=== PATIENT | female | born 1935 | race Caucasian/White ===

== ENCOUNTER 2016-10-23 04:23 | Inpatient (IN) | payer MEDICARE, BC, OTHER ==
[~2016-10-23] VITALS: Ht 160 cm; Wt 57.7 kg
[~2016-10-23 04:23] MED LIST: /ADVA50050 INH; /ATOR40TA PO; /MOXI40TA OR; /MOXI40TA PO; ADVAIR; ALBU17IN INH; ALBU83IN INH; AMLO10TA PO; AMLO10TA2 PO; ASPI325T PO; ASPI32ECTA PO; ATOR1TAB19 PO; AZIT500T2 PO; CALCCHW12 PO; CALCTAB68 PO; CEFD1CAP8 PO; CLON0.5T PO; CLON1TAB PO; COLA50CA3 PO; DOCU100C PO; DUONSOL INH; DYAZ37.5 PO; DYAZCA PO; FERR325T3 PO; FERR325T69 PO; FLUN7IN; HALO25TA PO; HYDR-3713 PO; K-TA10TA PO; K-TA10TA2 PO; KLON0.5T PO; KLON2TAB PO; LEVO112T PO; LEVO125T41 PO; LEVO500T32 PO; LEVO88TA2 PO; LISI10TA4 PO; LISI5TAB PO; NICO14DI20 TD; OMEP20CA3 PO; OSCA200T PO; PRED10PA PO; PRED10TA PO; PRED20TA OR; PROS5TAB PO; SERT-141 PO; SERT100T PO; SYMB16INH INH; TRIA37.53 PO; VENTAER IN; VICO5TAB PO; VICOBULK PO; VITMTA PO; ZOLO100T PO
[2016-10-23 05:26] LABS: BASO % 0.3 % (0.0-1.0); EOS # 0.1 K/mm3 (0.0-0.50); EOS % 1.7 % (0.0-3.0); LARGE UNSTAINED CELL # 0.1 K/mm3 (0.0-0.4); LARGE UNSTAINED CELL % 0.9 % (0.0-4.0); LYMPH # 0.5 K/mm3 (1.5-4.5); LYMPH % 6.2 % (24.0-44.0); MEAN CORPUSCULAR HEMOGLOBIN 30.2 pg (27.0-33.0); MEAN CORPUSCULAR HGB CONC 33.1 g/dl (32.0-36.5); MEAN CORPUSCULAR VOLUME 91.1 fl (80.0-96.0); MONO # 0.5 K/mm3 (0.0-0.8); MONO % 7.5 % (0.0-5.0); NEUTROPHILS # 5.6 K/mm3 (1.8-7.7); NEUTROPHILS % 83.3 % (36.0-66.0); PLATELET COUNT, AUTOMATED 196 k/mm3 (150-450); RED CELL DISTRIBUTION WIDTH 13.3 % (11.5-14.5); WHITE BLOOD COUNT 6.8 K/mm3 (4.0-10.0)
[2016-10-23 05:35] LABS: ALBUMIN 3.6 GM/DL (3.2-5.2); ALBUMIN/GLOBULIN RATIO 1.16 (1.00-1.93); ALKALINE PHOSPHATASE 58 U/L (45-117); ALT/SGPT 16 U/L (12-78); ANION GAP 5 MEQ/L (8-16); AST/SGOT 16 U/L (15-37); BILIRUBIN,DIRECT 0.2 MG/DL (0.0-0.2); BILIRUBIN,TOTAL 0.5 MG/DL (0.2-1.0); BLOOD UREA NITROGEN 33 MG/DL (7-18); CALCIUM LEVEL 10.2 MG/DL (8.8-10.2); CARBON DIOXIDE LEVEL 42 MEQ/L (21-32); CHLORIDE LEVEL 92 MEQ/L (98-107); CREATININE FOR GFR 0.82 MG/DL (0.55-1.02); GLOMERULAR FILTRATION RATE > 60.0 (>32); GLUCOSE, FASTING 97 MG/DL (83-110); POTASSIUM SERUM 3.9 MEQ/L (3.5-5.1); SODIUM LEVEL 139 MEQ/L (136-145); TOTAL PROTEIN 6.7 GM/DL (6.4-8.2)
[2016-10-23] MEDS ORDERED: ONDANSETRON 4MG/2ML VIAL (J2405) As Ordered ONE (06:22)
[2016-10-23] MEDS ORDERED: MORPHINE 4 MG/ML 1ML SYRINGE As Ordered ONE ×2 (06:22→08:21)
[2016-10-23] MEDS ORDERED: GASTROGRAFIN SOLUTION 30ML (Q9963) As Ordered ONE (06:56)
[2016-10-23] MEDS ORDERED: ISOVUE-370 76% 100ML VIAL (Q9967) As Ordered ONE (08:01)
--- NOTE | 2016-10-23 08:40 | REP ---
Clinical: Abdominal pain and distension. Technique: Axial contrast enhanced images from the lung bases to the pubic symphysis using oral and 100 ml Isovue 370 intravenous contrast material with coronal and sagittal re-formations. Comparison: 07/16/2006. Findings: There is evidence for high-grade mid small bowel obstruction. Transition is identified in the mid lower abdomen/pelvis at the level of the mid/distal jejunum (images 74 - 65). The remainder of the small bowel and colon appear relatively normal caliber. There is no evidence for free air. Small to moderate amount of ascites noted. Liver, spleen, pancreas, gallbladder, and right adrenal gland are normal. Left adrenal adenoma noted. Kidneys demonstrate bilateral cysts measuring up to 9 cm right kidney and 4 cm left kidney. Pelvis demonstrates normal bladder and evidence for prior hysterectomy. Extensive atherosclerotic changes to the descending thoracic and abdominal aorta noted with dilatation of the descending thoracic aorta to approximately 4.7 cm just above the diaphragm and the of the infrarenal abdominal aorta measuring up to 3.3 cm diameter. Musculoskeletal structures demonstrate degenerative changes. Impression: 1. High-grade small bowel obstruction with transition at the mid jejunum in the mid abdomen/pelvis as detailed above. No free air. Mild to moderate ascites. 2. Large bilateral renal cysts (right greater than left) up to 9 cm. 3. 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 Signed by Wang Preston MD 10/23/2016 08:32 A
[2016-10-23] MEDS ORDERED: MIRA3350 PO (09:12)
[2016-10-23] MEDS ORDERED: CALC600T10 PO (09:12)
[2016-10-23] MEDS ORDERED: FERR325T PO (09:13)
[2016-10-23] MEDS ORDERED: ALBUTEROL SULFATE 2.5 MG/0.5 ML INH NEB SOLN INH PRN (12:15)
[2016-10-23] MEDS ORDERED: ALBUTEROL 90 MCG/ACT 8GM HFA INHALER INH PRN (12:15)
[2016-10-23] MEDS ORDERED: ONDANSETRON 4MG/2ML VIAL (J2405) IV PRN (12:15)
[2016-10-23 12:57] LABS: INR 0.93
--- NOTE | 2016-10-23 13:24 | EDDOCDS ---
Nurse's Notes [facility] Name: Farida Zacarias Age: 81 yrs Sex: Female : 1935 Arrival Date: 10/23/2016 Time: 04:23 Bed 21 Private MD: Javier Sanford M.D. Diagnosis: Other intestinal obstruction Presentation: 10/23 04:47 Presenting complaint: Patient states: "my nose is running constantly and I have a cough cf2 but now I am vomiting and can't hold anything down" EMS states: on 3 lpm nasal cannula at home. No vomiting enroute to facility. Adult Sepsis Screening: The patient does not have new or worsening altered mentation. Patient's respiratory rate is less than 22. Systolic blood pressure is greater than 100. Patient has a qSOFA score of 0- Negative Sepsis Screen. Suicide/Homicide risk assessment- the patient denies having any suicidal and/or homicidal ideations and does not present with any other emotional, behavioral or mental health complaints. Status: Patient is not a digital service engineer or dependent. Transition of care: patient was not received from another setting of care. 04:47 Acuity: MANUELA Level 2 cf2 04:47 Method Of Arrival: Ambulance cf2 Triage Assessment: 04:50 General: Appears in no apparent distress, Behavior is appropriate for age, cooperative. cf2 Pain: Denies pain. The patient is triaged at the bedside. See Assessment in Nurses Notes section of ED record. Neurological: No deficits noted. EENT: Nares with drainage noted. Cardiovascular: Rhythm is sinus rhythm. Historical: - Allergies: no known allergies; - Home Meds: 1. albuterol sulfate 2.5 mg /3 mL (0.083 %) Inhl nebu 3 mL every 6 hours 2. amlodipine 10 mg Oral tab once daily 3. aspirin 325 mg Oral tab once daily 4. triamterene-hydrochlorothiazid 37.5-25 mg Oral tab once daily 5. potassium chloride 10 mEq Oral cpER 1 cap once daily 6. Symbicort 160-4.5 mcg/actuation inhalation HFAA 2 puffs 2 times per day 7. sertraline 100 mg oral tab 1.5 tabs once daily 8. pro air MDI 108/90 base mg/act 2 puff four times a day 9. Oxygen 2 liters 10. [place] 5-325 mg Oral tab every 6 hours as needed 11. Miralax 17 gram Oral pwpk 1 packet once daily 12. lisinopril 10 mg Oral tab 1 tab once daily 13. ferrous gluconate 325 mg (37 mg iron) Oral tab 325 mg daily 14. Lipitor 20 mg Oral tab 1 tab once daily 15. clonazepam 1 mg Oral tab 3 times daily as needed - PMHx: COPD; Hypercholesterolemia; Hypertension; Hypothyroidism; - Social history: Smoking status: Patient uses tobacco products, current every day smoker. Race: White, Ethnicity: Not or No barriers to communication noted, The patient speaks fluent Citizen [place], Preferred Language: Citizen [place]. - Family history: Not pertinent. - : The pt / caregiver states he / she is not on anticoagulants. Home medication list is obtained from a discharge med list. - Exposure Risk Screening:: None identified. Screenin:45 Screening information is obtained from the patient. Fall risk: No risks identified. cf2 Assistance ADL's: requires no assistance with activities of daily living. Abuse/DV Screen: The patient / caregiver reports he/she is: not in a situation that causes fear, pain or injury. Nutritional screening: No deficits noted. Advance Directives: Further advance directive information is declined. home support is adequate. Assessment: 06:45 Reassessment: Patient states feeling better. Adult Sepsis Screening: The patient does cf2 not have new or worsening altered mentation. Patient's respiratory rate is less than 22. Systolic blood pressure is greater than 100. Patient has a qSOFA score of 0- Negative Sepsis Screen. General: Appears ill, Behavior is appropriate for age, cooperative. Pain: Location: abdomen. Neurological: No deficits noted. EENT: No deficits noted. Cardiovascular: No deficits noted. Respiratory:. GI: Bowel sounds present X 4 quads. Abd is soft Abd is non tender. GI: Abdomen is distended, Reports nausea, vomiting. : No deficits noted. Derm: No deficits noted. Musculoskeletal: No deficits noted. Injury Description: No known injury. 07:23 General: Appears in no apparent distress, Behavior is appropriate for age, cooperative. ja5 Pain: Location: right lower quadrant and left lower quadrant Pain currently is 7 out of 10 on a pain scale. Neurological: Level of Consciousness is awake, alert, Oriented to person, place, time. Cardiovascular: Capillary refill < 3 seconds Heart tones S1 S2 present. Respiratory: Airway is patent Respiratory effort is even, unlabored, Respiratory pattern is regular. GI: Abdomen is distended, Bowel sounds present X 4 quads. hyperactive in right upper quadrant and abdomen diffusely Abd is soft X 4 quads Abd is non tender X 4 quads Reports nausea, vomiting. Derm: Skin is pink, warm & dry. 08:23 General: Patient back from CT, states she is still having pain to back and abdomen ja5 rated 7/10 on pain scale. New orders for pain management received. Respirations even and unlabored, color is pink, SR on compactor driver. Bed in low position, visitor at bedside. . 09:25 General: Patient asleep with visitor in room. Patient respirations are even and ja5 unlabored, SR on compactor driver, patient arouses easily and is alert. She states that the morphine helped and her pain has decreased. . 10:46 General: 18 swazi NG placed 55cm to left nare, 30cc air bolus auscultated and gastric ja5 contents aspirated to verify placement. Patient tolerated procedure well. NG tube was placed on low, continuous suction with green gastric contents present in suction chamber. Patient states that her abdomen is still upset but her pain level has not increased at this time. . 12:30 General: Pt moved to Room 21. Pt alert, oriented. Color pink, skin warm and dry. jc4 Respirations easy and full. NGT in place. Denies any abdominal pain at this time. Maintained on 3 liters nasal canula. 12:50 General: Patient resting in stretcher, NG to left nare suctioning green gastric fluid ja5 with approx 700ml in suction chamber. Respirations are even and unlabored, color is pink, SR reading on compactor driver. Patient has stated that she feels some relief in her stomach ever since the NG tube was placed for suction. Patient was transferred to a holding bed, all needs addressed at this time. . 13:20 General: Appears in no apparent distress, Behavior is cooperative. Pain: Denies pain. jc4 Neurological: Level of Consciousness is awake, alert, Oriented to person, place, time. Respiratory: Airway is patent Respiratory effort is even, unlabored, Respiratory pattern is regular, symmetrical. GI: NGT in place, clamped. for transport. Derm: Skin is pink, warm & dry. Vital Signs: 04:50 BP 176 / 70; Pulse 64; Resp 20; Temp 98.6(O); Pulse Ox 100% on 3 lpm NC; Weight 62.6 cf2 kg; Height 5 ft. 3 in. (160.02 cm); Pain 4/10; 07:23 BP 163 / 67; Pulse 65; Resp 20; Temp 98.5(A); Pulse Ox 99% on 2 lpm NC; Pain 7/10; ja5 09:20 Pain 5/10; ja5 11:09 BP 174 / 74; Pulse 60; Resp 20; Temp 98.8(TE); Pulse Ox 95% on 2 lpm NC; Pain 4/10; ja5 12:10 BP 147 / 66; Pulse 62; Resp 20; Temp 99.5(TE); Pulse Ox 96% on 2 lpm NC; Pain 0/10; jc4 13:20 BP 153 / 70; Pulse 59; Resp 20; Temp 98.8(O); Pulse Ox 98% on 3 lpm NC; Pain 0/10; jc4 04:50 Body Mass Index 24.45 (62.60 kg, 160.02 cm) cf2 Vitals: 04:50 Log In Time N/A - ambulance arrival. cf2 ED Course: 04:24 Patient visited by Rohan Thacker PCA. kb5 04:24 Patient moved to Waiting kb5 04:24 Patient moved to I8 / 16 kb5 04:25 Javier Sanford is Private Physician. kb5 04:47 Madeline Aguillon,LUCIO is Primary Nurse. cf2 04:47 Patient visited by Madeline Aguillon,LUCIO. cf2 04:48 Triage Initiated cf2 05:31 Patient visited by Madeline Aguillon,LUCIO. cf2 05:56 Edvin Roberts MD is Attending Physician. br1 06:05 Patient visited by Edvin Roberts MD. br1 06:39 Patient visited by Madeline Aguillon,LUCIO. cf2 06:45 Patient visited by Madeline Aguillon,LUCIO. cf2 06:45 The patient / caregiver is instructed regarding the plan of care and ED course. Patient cf2 has correct armband on for positive identification. Placed in gown. Bed in low position. Call light in reach. Side rails up X 1. Side rails up X2. Adult w/ patient. bacteriologist fishery on. Pulse ox on. NIBP on. Property :Personal belongings accompany Pt. Door closed. Noise minimized. Visitors limited. Lights dimmed. Moved to private room. Verbal reassurance given. Warm blanket given. Pillow given. Head of bed elevated. Diet: Patient is NPO. Assisted with bedpan. 06:45 Inserted saline lock: 18 gauge in left forearm and blood collected. The patient cf2 tolerated the procedure well. No procedures done that require assistance. O2 via nasal cannula \\T\\ 3L/min. 07:03 Bethanie Del Cid, LUCIO is Primary Nurse. jc4 07:05 Miranda Bustos RN is Primary Nurse. ja5 07:12 Attending Physician role handed off by Edvin Roberts MD sd1 07:12 Josiane Casey MD is Attending Physician. sd1 07:23 Patient visited by Miranda Bustos RN. ja5 08:19 [facility] Payment Agreement was scanned into [employer] and attached to record. lg 08:20 Patient visited by Miranda Bustos RN. ja5 08:45 CT ABD & PELVIS: IV and Oral Contrast Returned. EDMS 10:08 Jourdan Davalos is Hospitalizing Provider. sd1 10:49 Patient visited by Radha Castillo. cmb 10:49 Assisted with bedpan. cmb 10:51 NGT inserted 18 Fr. via left nare. Placement verified. Returned gastric contents. to ja5 continuous suction. Returned gastric contents. Patient tolerated well. 11:10 Patient visited by Miranda Bustos RN. ja5 12:18 Patient moved to [facility] 12:30 Report given to Alonzo Rodríguez RN. jc4 12:38 Patient moved to 21 hs1 Administered Medications: 06:10 Drug: Ondansetron 4 mg [ondansetron HCl 2 mg/mL intravenous solution (2 mL)] Route: cf2 IVP; Site: left antecubital; 06:10 Drug: NS 0.9% 1000 ml [sodium chloride 0.9 % intravenous solution] Route: IV; Rate: 150 cf2 mL/hr; Site: left antecubital; 06:20 Drug: morphine 4 mg [morphine 4 mg/mL intravenous cartridge (1 mL)] Route: IVP; Site: cf2 left antecubital; 07:25 Drug: Diatrizoate Meglumine & Sodium 10 ml [diatrizoate meglumine and diat.sodium 66 ja5 %-10 % oral solution (10 mL)] Route: PO; 08:29 Drug: morphine 4 mg [morphine 4 mg/mL intravenous cartridge (1 mL)] Route: IVP; Site: ja5 left forearm; 09:20 Follow up: Pain 01/08 Adult ja5 Intake: 07:25 PO: 300.00ml (Contrast); Total: 300.00ml. ja5 Output: 13:21 Gastric: 950.00ml (NGT); Total: 950.00ml. jc4 Order Results: Lab Order: CBC with Diff; SPEC'M 10/23/16 04:45 Test: WHITE BLOOD COUNT; Value: 6.8; Range: 4.0-10.0; Units: K/mm3; Status: F Test: RED BLOOD COUNT; Value: 4.24; Range: 4.00-5.40; Units: M/mm3; Status: F Test: HEMOGLOBIN; Value: 12.8; Range: 12.0-16.0; Units: g/dl; Status: F Test: HEMATOCRIT; Value: 38.6; Range: 36.0-47.0; Units: %; Status: F Test: MEAN CORPUSCULAR VOLUME; Value: 91.1; Range: 80.0-96.0; Units: fl; Status: F Test: MEAN CORPUSCULAR HEMOGLOBIN; Value: 30.2; Range: 27.0-33.0; Units: pg; Status: F Test: MEAN CORPUSCULAR HGB CONC; Value: 33.1; Range: 32.0-36.5; Units: g/dl; Status: F Test: RED CELL DISTRIBUTION WIDTH; Value: 13.3; Range: 11.5-14.5; Units: %; Status: F Test: PLATELET COUNT, AUTOMATED; Value: 196; Range: 150-450; Units: k/mm3; Status: F Test: NEUTROPHILS %; Value: 83.3; Range: 36.0-66.0; Abnormal: Above high normal; Units: %; Status: F Test: LYMPH %; Value: 6.2; Range: 24.0-44.0; Abnormal: Below low normal; Units: %; Status: F Test: MONO %; Value: 7.5; Range: 0.0-5.0; Abnormal: Above high normal; Units: %; Status: F Test: EOS %; Value: 1.7; Range: 0.0-3.0; Units: %; Status: F Test: BASO %; Value: 0.3; Range: 0.0-1.0; Units: %; Status: F Test: LARGE UNSTAINED CELL %; Value: 0.9; Range: 0.0-4.0; Units: %; Status: F Test: NEUTROPHILS #; Value: 5.6; Range: 1.8-7.7; Units: K/mm3; Status: F Test: LYMPH #; Value: 0.5; Range: 1.5-4.5; Abnormal: Below low normal; Units: K/mm3; Status: F Test: MONO #; Value: 0.5; Range: 0.0-0.8; Units: K/mm3; Status: F Test: EOS #; Value: 0.1; Range: 0.0-0.50; Units: K/mm3; Status: F Test: BASO #; Value: 0.0; Range: 0.0-0.2; Units: K/mm3; Status: F Test: LARGE UNSTAINED CELL #; Value: 0.1; Range: 0.0-0.4; Units: K/mm3; Status: F Lab Order: [facility]; SPEC'M 10/23/16 04:45 Test: GLUCOSE, FASTING; Value: 97; Range: 83-110; Units: MG/DL; Status: F Test: BLOOD UREA NITROGEN; Value: 33; Range: 7-18; Abnormal: Above high normal; Units: MG/DL; Status: F Test: CREATININE FOR GFR; Value: 0.82; Range: 0.55-1.02; Units: MG/DL; Status: F Test: GLOMERULAR FILTRATION RATE; Value: > 60.0; Range: >32; Status: F Test: SODIUM LEVEL; Value: 139; Range: 136-145; Units: MEQ/L; Status: F Test: POTASSIUM SERUM; Value: 3.9; Range: 3.5-5.1; Units: MEQ/L; Status: F Test: CHLORIDE LEVEL; Value: 92; Range: 98-107; Abnormal: Below low normal; Units: MEQ/L; Status: F Test: CARBON DIOXIDE LEVEL; Value: 42; Range: 21-32; Abnormal: Above high normal; Units: MEQ/L; Status: F Test: ANION GAP; Value: 5; Range: 8-16; Abnormal: Below low normal; Units: MEQ/L; Status: F Test: CALCIUM LEVEL; Value: 10.2; Range: 8.8-10.2; Units: MG/DL; Status: F Test Note: ; Units are mL/min/1.73 m2 Chronic Kidney Disease Staging per NKF: Stage I & II GFR >=60 Normal to Mildly Decreased Stage III GFR 30-59 Moderately Decreased Stage IV GFR 15-29 Severely Decreased Stage V GFR <15 Very Little GFR Left ESRD GFR <15 on CREDIT INTERVIEWER Lab Order: Liver Profile; SPEC'M 10/23/16 04:45 Test: AST/SGOT; Value: 16; Range: 15-37; Units: U/L; Status: F Test: ALT/SGPT; Value: 16; Range: 12-78; Units: U/L; Status: F Test: ALKALINE PHOSPHATASE; Value: 58; Range: 45-117; Units: U/L; Status: F Test: BILIRUBIN,TOTAL; Value: 0.5; Range: 0.2-1.0; Units: MG/DL; Status: F Test: BILIRUBIN,DIRECT; Value: 0.2; Range: 0.0-0.2; Units: MG/DL; Status: F Test: TOTAL PROTEIN; Value: 6.7; Range: 6.4-8.2; Units: GM/DL; Status: F Test: ALBUMIN; Value: 3.6; Range: 3.2-5.2; Units: GM/DL; Status: F Test: ALBUMIN/GLOBULIN RATIO; Value: 1.16; Range: 1.00-1.93; Status: F Lab Order: Lipase; SPEC' 10/23/16 04:45 Test: LIPASE; Value: 59; Range: 73-393; Abnormal: Below low normal; Units: U/L; Status: F Lab Order: -Influenza A&B Rapid Antigen - Nose; SPEC'M 10/23/16 04:45 Test: INFLUENZA A RAPID SCR by ICA; Value: INFLUENZA A RESULTS NEGATIVE; Status: F Test: INFLUENZA A RAPID SCR by ICA; Value: Comments:; Status: F Test: INFLUENZA B RAPID SCR by ICA; Value: INFLUENZA B RESULTS NEGATIVE; Status: F Test Note: ; The Influenza test is a direct rapid immunoassay for the qualitative detection of Influenza viral antigen. Cell culture (Viral Culture) testing should be considered to confirm NEGATIVE results and to assist in detecting other viruses that can provide similar clinical symptoms. Please contact the lab within 24 hours [phone]) if confirmatory testing is desired. Lab Order: Urinalysis; SPEC'M 10/23/16 04:45 Test: APPEARANCE, URINE; Value: HAZY; Range: CLEAR; Status: F Test: COLOR, URINE; Value: YELLOW; Range: YELLOW; Status: F Test: PH,URINE; Value: 6.0; Range: 5.0-9.0; Units: UNITS; Status: F Test: SPECIFIC GRAVITY URINE AUTO; Value: 1.014; Range: 1.002-1.035; Status: F Test: PROTEIN, URINE AUTO; Value: NEGATIVE; Range: NEGATIVE; Units: mg/dL; Status: F Test: GLUCOSE, URINE (UA) AUTO; Value: NEGATIVE; Range: NEGATIVE; Units: mg/dL; Status: F Test: KETONE, URINE AUTO; Value: TRACE; Range: NEGATIVE; Abnormal: Above high normal; Units: mg/dL; Status: F Test: UROBILINOGEN, URINE AUTO; Value: 0.2; Range: 0.0-2.0; Units: mg/dL; Status: F Test: BILIRUBIN, URINE AUTO; Value: NEGATIVE; Range: NEGATIVE; Status: F Test: NITRITE, URINE AUTO; Value: NEGATIVE; Range: NEGATIVE; Status: F Test: LEUKOCYTE ESTERASE, URINE AUTO; Value: NEGATIVE; Range: NEGATIVE; Status: F Test: BLOOD, URINE BLOOD; Value: NEGATIVE; Range: NEGATIVE; Status: F Test: WBC, URINE AUTO; Value: 4; Range: 0-3; Abnormal: Above high normal; Units: /HPF; Status: F Test: RBC, URINE AUTO; Value: 5; Range: 0-3; Abnormal: Above high normal; Units: /HPF; Status: F Test: BACTERIA, URINE AUTO; Value: NEGATIVE; Range: NEGATIVE; Status: F Test: SQUAMOUS EPITHELIAL CELL UR AU; Value: 1; Range: 0-6; Units: /HPF; Status: F Test: MUCUS, URINE; Value: SMALL; Range: NEGATIVE; Status: F Test: HYALINE CAST, URINE AUTO; Value: 0; Range: 0-1; Units: /LPF; Status: F Test: AMORPHOUS SEDIMENT; Value: SMALL; Range: NEGATIVE; Abnormal: Above high normal; Status: F Lab Order: PROTHROMBIN TIME PROFILE\\E\\INR; SPEC'M 10/23/16 12:25 Test: PROTHROMBIN TIME; Value: 12.6; Range: 12.3-14.5; Units: SECONDS; Status: F Test: INR; Value: 0.93; Status: F Test Note: ; THERAPUTIC HUMAN INR VALUES INDICATIONS NORMAL RANGES PROPHYLAXIS/TREATMENT OF: VENOUS THROMBOSIS 2.0-3.0 PULMONARY EMBOLISM 2.0-3.0 PREVENTION OF SYSTEMIC EMBOLISM FROM: TISSUE HEART VALVES 2.0-3.0 ACUTE MYOCARDIAL INFARCTION 2.0-3.0 VALVULAR HEART DISEASE 2.0-3.0 ATRIAL FIBRILLATION 2.0-3.0 MECHANICAL VALVES(HIGH RISK) 2.5-3.5 RECURRENT MYOCARDIAL INFARCTION 2.5-3.5 Lab Order: LACTIC ACID LEVEL, LACTATE; SPEC'M 10/23/16 12:25 Test: LACTIC ACID SEPSIS PROTOCOL; Value: 0.7; Range: 0.4-2.0; Units: MMOL/L; Status: F Radiology Order: CT ABD & PELVIS: IV and Oral Contrast Test: CT ABD & PELVIS: IV and Oral Contrast REASON FOR EXAMINATION: Abdomen Pain; Clinical: Abdominal pain and distension.; ; Technique: Axial contrast enhanced images from the lung bases to the pubic; symphysis using oral and 100 ml Isovue 370 intravenous contrast material with; coronal and sagittal re-formations.; ; Comparison: 07/16/2006.; ; Findings:; There is evidence for high-grade mid small bowel obstruction. Transition is; identified in the mid lower abdomen/pelvis at the level of the mid/distal jejunum; (images 74 - 65). The remainder of the small bowel and colon appear relatively; normal caliber. There is no evidence for free air. Small to moderate amount of; ascites noted.; ; Liver, spleen, pancreas, gallbladder, and right adrenal gland are normal. Left; adrenal adenoma noted. Kidneys demonstrate bilateral cysts measuring up to 9 cm; right kidney and 4 cm left kidney. Pelvis demonstrates normal bladder and; evidence for prior hysterectomy. Extensive atherosclerotic changes to the; descending thoracic and abdominal aorta noted with dilatation of the descending; thoracic aorta to approximately 4.7 cm just above the diaphragm and the of the; infrarenal abdominal aorta measuring up to 3.3 cm diameter. Musculoskeletal; structures demonstrate degenerative changes.; ; Impression:; 1. High-grade small bowel obstruction with transition at the mid jejunum in the; mid abdomen/pelvis as detailed above. No free air. Mild to moderate ascites.; 2. Large bilateral renal cysts (right greater than left) up to 9 cm.; 3. Extensive atherosclerotic changes of the aorta including aneurysmal; dilatation to the descending thoracic aorta and mild dilatation to the infrarenal; abdominal aorta.; ; ; Signed by; Wang Preston MD 10/23/2016 08:32 A; Outcome: 10:09 Decision to Hospitalize by Provider. sd1 13:09 Discharge Assessment: Patient awake, alert and oriented x 3. No cognitive and/or jc4 functional deficits noted. Patient verbalized understanding of disposition instructions. patient administered narcotics - yes. Patient was admitted to the hospital or transferred to another facility. The following High Risk Discharge criteria are identified: None. Admitted to Med/Surg accompanied by tech, via stretcher, with oxygen, with chart. Condition: stable. CT Study completed. Admission hand-off: Report Faxed Fax receipt verified by Melvina. 13:23 Patient left the ED. jc4 Signatures: Dispatcher [employer] EDMS Josiane Casey MD MD sd1 Iram Nichole, RN RN kpLi Lozada, Reg Reg lg Rohan Thacker, CERTIFIED MEDICAL TRANSCRIPTIONIST CERTIFIED MEDICAL TRANSCRIPTIONIST kb5 Edvin Roberts MD MD br1 Francy Roy RN RN hs1 Bethanie Del Cid RN RN jc4 Radha Castillo Christina,RN RN cf2 Miranda Bustos,RN RN ja5 Corrections: (The following items were deleted from the chart) 10:52 10:46 General: 18 swazi NG placed 55cm to left nare, 30cc air bolus auscultated and ja5 gastric contents aspirated to verify placement. Patient tolerated procedure well. NG tube was placed on low, intermittent suction with green gastric contents present in suction chamber. Patient states that her abdomen is still upset but her pain level has not increased at this time. . ja5 12:54 07:23 GI: Abdomen is flat, Bowel sounds present X 4 quads. hyperactive in right upper ja5 quadrant and abdomen diffusely Abd is soft X 4 quads Abd is non tender X 4 quads Reports nausea, vomiting, ja5 MTDD
--- NOTE | 2016-10-23 13:24 | EDDOCDS ---
Physician Documentation [facility] Name: Farida Zacarias Age: 81 yrs Sex: Female : 1935 Arrival Date: 10/23/2016 Time: 04:23 Bed 21 Private MD: Javier Sanford M.D. Disposition: 10/23/16 10:09 Hospitalization ordered by Jourdan Davalos for Inpatient Admission. Preliminary diagnosis is Other intestinal obstruction. - Bed requested for 4 [place]. - Status is Inpatient Admission. jc4 - Condition is Stable. - Problem is new. - Symptoms are unchanged. Historical: - Allergies: no known allergies; - Home Meds: 1. albuterol sulfate 2.5 mg /3 mL (0.083 %) Inhl nebu 3 mL every 6 hours 2. amlodipine 10 mg Oral tab once daily 3. aspirin 325 mg Oral tab once daily 4. triamterene-hydrochlorothiazid 37.5-25 mg Oral tab once daily 5. potassium chloride 10 mEq Oral cpER 1 cap once daily 6. Symbicort 160-4.5 mcg/actuation inhalation HFAA 2 puffs 2 times per day 7. sertraline 100 mg oral tab 1.5 tabs once daily 8. pro air MDI 108/90 base mg/act 2 puff four times a day 9. Oxygen 2 liters 10. Telephone 5-325 mg Oral tab every 6 hours as needed 11. Miralax 17 gram Oral pwpk 1 packet once daily 12. lisinopril 10 mg Oral tab 1 tab once daily 13. ferrous gluconate 325 mg (37 mg iron) Oral tab 325 mg daily 14. Lipitor 20 mg Oral tab 1 tab once daily 15. clonazepam 1 mg Oral tab 3 times daily as needed - PMHx: COPD; Hypercholesterolemia; Hypertension; Hypothyroidism; - Social history: Smoking status: Patient uses tobacco products, current every day smoker. Race: White, Ethnicity: Not or No barriers to communication noted, The patient speaks fluent Zambian, Preferred Language: Z[place]ian. - Family history: Not pertinent. - : The pt / caregiver states he / she is not on anticoagulants. Home medication list is obtained from a discharge med list. - Exposure Risk Screening:: None identified. Vital Signs: 10/23 04:50 BP 176 / 70; Pulse 64; Resp 20; Temp 98.6(O); Pulse Ox 100% on 3 lpm NC; Weight 62.6 kg cf2 / 138.01 lbs; Height 5 ft. 3 in. (160.02 cm); Pain 4/10; 07:23 BP 163 / 67; Pulse 65; Resp 20; Temp 98.5(A); Pulse Ox 99% on 2 lpm NC; Pain 7/10; ja5 09:20 Pain 5/10; ja5 11:09 BP 174 / 74; Pulse 60; Resp 20; Temp 98.8(TE); Pulse Ox 95% on 2 lpm NC; Pain 4/10; ja5 12:10 BP 147 / 66; Pulse 62; Resp 20; Temp 99.5(TE); Pulse Ox 96% on 2 lpm NC; Pain 0/10; jc4 13:20 BP 153 / 70; Pulse 59; Resp 20; Temp 98.8(O); Pulse Ox 98% on 3 lpm NC; Pain 0/10; jc4 04:50 Body Mass Index 24.45 (62.60 kg, 160.02 cm) cf2 MDM: 05:17 IV Saline Lock ordered. br1 05:18 CBC with Diff Ordered. EDMS 05:18 BMP Ordered. EDMS 05:18 Liver Profile Ordered. EDMS 05:18 Lipase Ordered. EDMS 06:06 -Influenza A&B Rapid Antigen - Nose Ordered. EDMS 06:06 morphine 4 mg IVP once ordered. br1 06:06 Ondansetron 4 mg IVP once ordered. br1 06:07 NS 0.9% 1000 ml IV at 150 mL/hr continuous ordered. br1 06:07 CBC with Diff Reviewed. br1 06:07 BMP Reviewed. br1 06:07 Lipase Reviewed. br1 06:07 Liver Profile Reviewed. br1 06:07 Urinalysis Ordered. EDMS 06:07 Urine Culture Ordered. EDMS 06:08 CT ABD & PELVIS: IV and Oral Contrast Ordered. EDMS 06:09 GASTROINTESTINAL (GI) PANEL Ordered. EDMS 07:07 Urinalysis Reviewed. br1 07:07 -Influenza A&B Rapid Antigen - Nose Reviewed. br1 07:41 Financial registration complete. lg 07:49 BED REQUEST+ADM ordered. EDMS 08:09 morphine 4 mg IVP every 15 minutes; Document pain score/vitals after each dose (Hold if sd1 SBP < 90mmHg) x2 ordered. 08:19 [facility] Payment Agreement was scanned into [employer] and attached to record. lg 09:36 NG Tube, 18Fr ordered. sd1 09:41 ECG WITH READING ER PHYS+CARDIAG ordered. EDMS 11:06 Admission / Observation Status ordered. EDMS 11:23 Diatrizoate Meglumine & Sodium Liquid 10 ml PO once; mix in 290cc of water administer ja5 at 0725 ordered. 12:00 GASTROINTESTINAL (GI) PANEL Ordered. EDMS 12:10 NPO DIET ordered. EDMS 12:11 PROTHROMBIN TIME PROFILE\E\INR Ordered. EDMS 12:11 LACTIC ACID LEVEL, LACTATE Ordered. EDMS Administered Medications: 06:10 Drug: Ondansetron 4 mg [ondansetron HCl 2 mg/mL intravenous solution (2 mL)] Route: cf2 IVP; Site: left antecubital; 06:10 Drug: NS 0.9% 1000 ml [sodium chloride 0.9 % intravenous solution] Route: IV; Rate: 150 cf2 mL/hr; Site: left antecubital; 06:20 Drug: morphine 4 mg [morphine 4 mg/mL intravenous cartridge (1 mL)] Route: IVP; Site: cf2 left antecubital; 07:25 Drug: Diatrizoate Meglumine & Sodium 10 ml [diatrizoate meglumine and diat.sodium 66 ja5 %-10 % oral solution (10 mL)] Route: PO; 08:29 Drug: morphine 4 mg [morphine 4 mg/mL intravenous cartridge (1 mL)] Route: IVP; Site: ja5 left forearm; 09:20 Follow up: Pain 5/10 Adult ja5 Signatures: Dispatcher [employer] EDFL Josiane Casey MD MD sd1 Li Edward, Reg Reg lg Edvin Roberts MD MD br1 Bethanie Del Cid, RN RN jc4 Iveth Hinojosa RN RN sls2 Madeline Aguillon RN RN cf2 Miranda Bustos RN RN ja5 The chart was reviewed and I authenticate all verbal orders and agree with the evaluation and treatment provided.Corrections: (The following items were deleted from the chart) 06:09 06:08 GASTROINTESTINAL (GI) PANEL+MAZIN ordered. EDMS EDMS 06:40 06:06 Straight cath ordered. br1 cf2 12:02 12:00 GASTROINTESTINAL (GI) PANEL ordered. EDMS EDMS Attachments: 08:19 [facility] Payment Agreement lg MTDD
[2016-10-23 14:00] VITALS: BP 120/62
[2016-10-23] MEDS: SYMBICORT 160/4.5MCG INHALER 6GM INH SCH ×2 (14:20→21:16)
[2016-10-23] MEDS: NICOTINE 14 MG/24 HR TRANSDERMAL TD SCH (16:26)
[2016-10-23] MEDS: NS 1,000 ML IV SCH ×2 (16:26→22:21)
[2016-10-23] MEDS: LEVOTHYROXINE 100 MCG (0.1MG) VIAL IV SCH (16:26)
[2016-10-23] MEDS: PANTOPRAZOLE 40MG INJ (PROTONIX) (C9113) IV SCH (16:26)
[2016-10-23] MEDS: HEPARIN SOD (PORCINE) 5000 UNITS/ML VIAL SC SCH ×2 (16:27→22:22)
--- NOTE | 2016-10-23 16:28 | HPE ---
DATE OF ADMISSION: 10/23/2016 PRIMARY CARE PROVIDER: Dr. Javier Sanford CHIEF COMPLAINT: Nausea, vomiting, abdominal pain. HISTORY OF PRESENT ILLNESS: The patient reportedly had started as abdominal pain with nausea and vomiting on Friday night. She did have some mild diarrhea associated with it, however, from Friday and Friday. Friday, she was not taking anything by mouth. She had no further diarrhea, but she was having persistent nausea and vomiting. It was so severe to the point that she felt weak and presented to the hospital. At this time, she denies fevers, chills, any blood in her stool, or blood in her vomit. No recent travel, changes in her diet. No other abdominal pain. No fevers. No chills. PAST MEDICAL HISTORY: 1. Chronic obstructive pulmonary disease (COPD), on chronic 3 liters of oxygen. 2. Ongoing tobacco abuse. 3. Gastroesophageal reflux disease. 4. Dyslipidemia. 5. Depression. 6. Hypertension. 7. Anxiety. 8. Graves disease with hypothyroidism. 9. Abdominal aortic aneurysm, status post repair. 10. Iron-deficiency anemia. SURGICAL HISTORY: 1. Appendectomy. 2. Hysterectomy. 3. Abdominal aortic aneurysm repair. SOCIAL HISTORY: The patient is an active smoker. Has an approximately [id number] history. She denies alcohol or illicit drug use. She lives alone, but her caregiver friend lives next door and checks on her regularly. REVIEW OF SYSTEMS: Negative other than in history of present illness (HPI). FAMILY HISTORY: Noncontributory. ALLERGIES: No known drug allergies. HOME MEDICATIONS: - hydrocodone/acetaminophen 5/325 half a tablet every 6 hours as needed for pain - amlodipine 10 mg nightly - aspirin 325 mg each evening - atorvastatin 10 mg nightly - clonazepam 1 mg three times a day as needed anxiety - ferrous sulfate 325 mg daily - hydrochlorothiazide with triamterine 37.5/25 each evening - levothyroxine 125 mcg every morning - lisinopril 10 mg each evening - multivitamin one tablet daily - MiraLAX 17 grams daily as needed constipation - potassium chloride 10 mEq each evening - sertraline 150 mg daily - albuterol sulfate 2.5 mg nebulizer inhaled four times a day as needed shortness of breath - ventolin HFA two puffs four times a day as needed shortness of breath - Symbicort 160/4.5 two puffs inhaled twice a day PHYSICAL EXAMINATION: Blood pressure (BP) 163/67, pulse 65, respiratory rate 20, temperature 98.5, oxygen (O2) saturation 99% on 2 liters nasal cannula. GENERAL: She is an elderly obese female laying flat in bed. She does not appear to be in any acute distress at this time. HEENT: Cranial nerves II-XII are grossly intact. She has very dry mucous membranes. No elevation in her central venous pressure (CVP). She has a nasogastric tube draining copious amounts of bilious fluid. CARDIOVASCULAR EXAMINATION: S1, S2, regular. RESPIRATORY EXAMINATION: Is clear. ABDOMINAL EXAMINATION: Is obese, distended, tender diffusely to light palpation. EXTREMITIES: No clubbing, cyanosis, or edema. LABORATORY STUDIES: WBC 6.8, hemoglobin 12.8, hematocrit 38.6, platelet count is 196. Chemistry panel: Sodium 139, potassium 3.9, chloride 92, bicarbonate 42, BUN 33, creatinine 0.8, lipase is 59, lactic acid is 0.7. Liver function tests are within normal limits. INR is 0.93. Influenza swab is negative. A urine culture is pending. IMAGING: The patient had a CT scan of the abdomen and pelvis, which revealed high-grade small bowel obstruction with transition point at the mid jejunum and the mid abdominal pelvis. No free air. Mild to moderate ascites. Large bilateral renal cysts. Extensive atherosclerotic changes of the aortic aneurysmal dilatation. ASSESSMENT AND PLAN: This is an 81-year-old female presenting with nausea, vomiting, and abdominal pain secondary to small bowel obstruction. PROBLEMS: 1. Small bowel obstruction, high-grade, likely secondary to previous adhesions from previous surgeries. I have spoken with Dr. Davis, who will see the patient in consultation. For the time being, we are attempting supportive care with conservative management with nasogastric tube, which appears to be decompressing, and her symptoms are improving at this time. We will continue to monitor closely. She will be nothing by mouth. I will start her on normal saline at 100 mL an hour. She will be provided with Zofran and intravenous (IV) pain medication as needed. 2. Hypothyroidism. We will convert her by mouth levothyroxine to IV. 3. Anxiety and depression. We will hold her selective serotonin reuptake inhibitor (SSRI) and her other by mouth medications. She will receive benzodiazepines IV as needed to avoid any withdrawal symptoms. 4. Gastroesophageal reflux disease. The patient will be on Protonix IV. 5. Chronic obstructive pulmonary disease (COPD). Will continue the patient on Symbicort and nebulizers as needed at her home inhalers. She will continue with an oxygen titrating saturations for 88% to 92%. 6. Hypertension. The patient is normotensive at this time. We will be holding her by mouth medications, including her amlodipine, triamterine, hydrochlorothiazide, and lisinopril. 7. Dyslipidemia. Lipitor is currently on hold. 8. Iron-deficiency anemia. Hemoglobin is appropriate. Will hold her ferrous gluconate, as she is unable to take by mouth. 9. Chronic pain. We are holding her [place]. We will be providing her with IV morphine as needed. DISPOSITION: The patient is admitted to the medical-surgical floor with a general surgery consultation. Continue to follow this patient very closely.
[2016-10-23 22:00] VITALS: BP 122/78
[2016-10-24 06:00] VITALS: BP 120/79
[2016-10-24] MEDS: HEPARIN SOD (PORCINE) 5000 UNITS/ML VIAL SC SCH ×3 (06:16→21:15)
[2016-10-24 06:23] LABS: MEAN CORPUSCULAR HEMOGLOBIN 30.3 pg (27.0-33.0); MEAN CORPUSCULAR HGB CONC 33.2 g/dl (32.0-36.5); MEAN CORPUSCULAR VOLUME 91.4 fl (80.0-96.0); RED CELL DISTRIBUTION WIDTH 13.5 % (11.5-14.5); WHITE BLOOD COUNT 4.6 K/mm3 (4.0-10.0)
[2016-10-24 06:35] LABS: ANION GAP 8 MEQ/L (8-16); BLOOD UREA NITROGEN 29 MG/DL (7-18); CALCIUM LEVEL 9.4 MG/DL (8.8-10.2); CARBON DIOXIDE LEVEL 39 MEQ/L (21-32); CHLORIDE LEVEL 95 MEQ/L (98-107); CREATININE FOR GFR 0.62 MG/DL (0.55-1.02); GLOMERULAR FILTRATION RATE > 60.0 (>32); GLUCOSE, FASTING 76 MG/DL (83-110); POTASSIUM SERUM 3.1 MEQ/L (3.5-5.1); SODIUM LEVEL 142 MEQ/L (136-145)
[2016-10-24] MEDS: SYMBICORT 160/4.5MCG INHALER 6GM INH SCH ×2 (08:23→19:54)
--- NOTE | 2016-10-24 08:52 | REP ---
Clinical: Follow up small bowel obstruction. Technique: Upright view of the chest with supine and upright views of the abdomen and pelvis. Findings: Markedly dilated bowel with air-fluid levels are identified and consistent with high-grade small bowel obstruction essentially unchanged when compared to recent CT. No obvious free air to suggest perforation. The nasogastric tube side port is at the level of the diaphragm and should be advanced. Impression: Continued evidence for high-grade small bowel obstruction. Nasogastric tube should be advanced into the stomach. Signed by Wang Preston MD 10/24/2016 08:44 A
[2016-10-24] MEDS: NS 1,000 ML IV SCH ×2 (09:00→21:15)
[2016-10-24] MEDS: NICOTINE 14 MG/24 HR TRANSDERMAL TD SCH (09:00)
--- NOTE | 2016-10-24 11:32 | IPNPDOC ---
Date Seen The patient was seen on 10/24/16. Progress Note SUBJECTIVE: Patient reports feeling better, some mild insomnia, no BM, passing gas from below OBJECTIVE PHYSICAL EXAMINATION: VITAL SIGNS: Please see below. GENERAL: frail elderly female laying in bed nad HEENT: PERRL, dry mucous membranes, no elevation in CVP CARDIOVASCULAR: S1 S2 regular RESPIRATORY: CTA ABDOMINAL: BS+ high pitched, less distention and ttp EXTREMITIES: no c/c/e LABORATORY DATA: Please see below. MICROBIOLOGY: Please see below. IMAGING: ABX ordered but pending DVT prophylaxis ordered?: Heparin q8h ASSESSMENT AND PLAN: This is a 81-year-old female with high grade SBO PROBLEMS: 1. SBO: Surgical cons appreciated, likely related to previous abd surgeries and adhesions. Will cons pulm for respiratory eval to see if pt is a surgical candidate. c/w NGT, NPO, anti emetics. Pt improving slightly at this time with decompression. IV pain meds. c/w IVF, improved dehydration 2. Hypothyrooidism : c/w IV Levothyroxine. 3.Anxiety : SSRI on hold while NPO.Benzo's IV to avoid withdrawal symptoms 4. HTN: PO meds on hold, controlled at this time 5. COPD: will cons pulm as outlined above, appears to be at her baseline resp status. 6. HLD: c/w lipitor 7. Fe Def anemia: PO meds on hold 8 Chronic pain: IV pain meds for now VS, I&O, 24H, Fishbone Vital Signs/I&O Vital Signs Date Time Temp Pulse Resp B/P Pulse Ox O2 Delivery O2 Flow Rate FiO2 10/24/16 06:00 97.0 69 19 120/79 96 Nasal Cannula 3.0 I&O- Last 24 Hours up to 6 AM 10/24/16 06:00 Intake Total 1200 ml Output Total 1575 ml Balance -375 ml Laboratory Data 24H LABS Laboratory Tests 2 10/23/16 12:25: Lactic Acid (Sepsis) 0.7, Prothromb Time International Ratio 0.93, Prothrombin Time 12.6 10/24/16 05:39: Anion Gap 8, Blood Urea Nitrogen 29H, Creatinine 0.62, Sodium Level 142, Potassium Level 3.1#L, Chloride Level 95L, Carbon Dioxide Level 39H, Calcium Level 9.4, Glomerular Filtration Rate > 60.0 CBC/BMP Laboratory Tests 10/24/16 05:39 Calcium Level 9.4, Red Blood Count 3.86 L, Mean Corpuscular Volume 91.4, Mean Corpuscular Hemoglobin 30.3, Mean Corpuscular Hemoglobin Concent 33.2, Red Cell Distribution Width 13.5 Microbiology Microbiology 10/23/16 Influenza Virus Type A Antigen - Final, Complete 10/23/16 Influenza Virus Type B Antigen - Final, Complete 10/23/16 Urine Culture - Final, Complete YOSSI SOTO MD Oct 24, 2016 11:32
[2016-10-24] MEDS: SIMETHICONE 80 MG CHEW TAB NG SCH ×4 (11:57→21:15)
[2016-10-24] MEDS: LEVOTHYROXINE 100 MCG (0.1MG) VIAL IV SCH (11:57)
[2016-10-24] MEDS: KCL 10MEQ IN 100ML SWI (KRUN) 10 MEQ in APPROPRIATE DILUENT 1 EA IV SCH ×6 (11:58→15:19)
[2016-10-24] MEDS: PANTOPRAZOLE 40MG INJ (PROTONIX) (C9113) IV SCH (12:02)
[2016-10-24 12:29] LABS: MAGNESIUM LEVEL 1.8 MG/DL (1.8-2.4)
[2016-10-24 14:00] VITALS: BP 166/74
--- NOTE | 2016-10-24 14:13 | CR ---
DATE OF CONSULTATION: 10/24/[address] Davalos to evaluate Ms. Zacarias for possible abdominal surgery. HISTORY OF PRESENT ILLNESS: Ms. Zacarias is an 81-year-old white female known to the pulmonary service, both by me and more recently by Dr. Tirado, for very severe chronic obstructive pulmonary disease (COPD) and tobacco usage that is ongoing. Ms. Zacarias was admitted on 10/23/2016 after having a several-day history of abdominal pain, nausea, and emesis, as well as mild diarrhea. She had a decreased appetite and felt weak. She presented to the hospital and was found to have a high-grade small bowel obstruction, felt secondary to previous adhesions. She was admitted and has been treated conservatively with a nasogastric tube. The plan is to continue to treat her conservatively, however, Dr. Davis wanted her seen by pulmonary in case surgery became necessary. When I went in the room and introduced myself and told her that I was here to look at her from a preoperative point of view in case surgery was needed, she told me that she was not going to take surgery under any circumstances. I told her that I wanted to go ahead and complete the evaluation, and I would pass that information on to Dr. Davalos, which I have done. At her baseline, Ms. Zacarias notes a daily cough that is typically productive of yellowish-brown sputum. No hemoptysis. She believes most of her cough is secondary to postnasal drip. She has no chest pain, no wheezing, no paroxysmal nocturnal dyspnea (PND), orthopnea. She denies dyspnea on exertion on a flat surface, stating as long as she wore oxygen, she could walk endlessly. She can climb one flight of stairs and has to do so at home, as she has three rooms upstairs, but does not believe she could climb two flights of stairs. Prior to her acute illness, she states she was eating well and felt reasonably well. No persistent fevers, chills, or drenching night sweats. She is a smoker and smoked 6-10 cigarettes per day until her recent illness, in which case she was only smoking one cigarette per day before she came in to the hospital this time. In regard to pulmonary medications, she was taking Symbicort 160/4.5 two puffs twice daily and Spiriva as an outpatient (though I do not see it on the last pulmonary clinic visit note). She was using her albuterol nebulizer 3-4 times per day. She was taking her albuterol rescue metered-dose inhaler approximately four times per day. Outside of her small bowel obstruction, she reports to me she does not have any new diagnosis since she saw Dr. Tirado back in January of 2016. PAST MEDICAL HISTORY: 1. Graves disease. a. Status post thyroid surgery. 2. ASCVD. a. Status post abdominal aortic aneurysm repair in 2004. 3. 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 a. Spirometry from 09/05/2015 showed FEV1 of 0.51 liters (30%) with an FVC of 1.08 liters (47%), FEV1/FVC ratio is reduced at 47%. 4. Anxiety/depression. 5. Dyslipidemia. 6. Iron-deficiency anemia. 7. Vitamin D deficiency. 8. Osteoporosis. 9. Hypothyroidism. 10. Status post hysterectomy. 11. History of old granulomatous disease. 12. GERD. 13. Hypertension. 14. Tobacco usage, ongoing at the time of admission. ALLERGIES: No known drug allergies. MEDICATIONS ON ADMISSION: - hydrocodone/acetaminophen 5/325 one-half tablet every 6 hours as needed - amlodipine 10 mg by mouth every day - aspirin 325 mg by mouth every day - atorvastatin 10 mg by mouth nightly - clonazepam 1 mg three times a day as needed - ferrous sulfate 325 mg by mouth every day - hydrochlorothiazide with triamterine 37.5/25 one by mouth every evening - levothyroxine 125 mgc every day - lisinopril 10 mg by mouth every day - multivitamin one by mouth every day - MiraLAX 17 grams by mouth every day as needed - potassium chloride 10 mEq by mouth every day - sertraline 150 mg by mouth every day - Symbicort 160/4.5 two puffs twice daily - albuterol nebulization four times a day as needed - Ventolin HFA two puffs four times a day as needed FAMILY HISTORY: Includes atherosclerotic heart disease. SOCIAL HISTORY: Ms. Zacarias has a [id number]-pack-year and continues to smoke up to 1/2 pack per day. She only quit 3-4 days and then resumed smoking. She does not drink alcohol. No street drug usage. She lives alone with her having quite suddenly in August of 2016. REVIEW OF SYSTEMS: Per history of present illness (HPI). The remainder of pertinent review of systems are negative. PHYSICAL EXAMINATION: General: Ms. Zacarias is lying in bed, in no acute distress. She can complete full sentences. Vital signs: Temperature 97, pulse 69, respiratory rate 19, blood pressure 120/79, with a mean arterial pressure (MAP) of 93, SpO2 96% on room air. HEENT: Anicteric. Pupils equal, round, reactive to light and accommodation. Nares patent. Nasogastric (NG) tube in place. Oropharynx clear. No wheezings. No evidence of drainage in the posterior pharynx. Mallampati 3. Moist mucosa. Dentures. Neck: Supple without jugular venous distention (JVD), without thyromegaly or masses. Trachea is midline. Lymph: Without cervical or supraclavicular lymphadenopathy. Chest: Mild kyphosis and increased AP diameter. Lungs: Symmetric excursion. Markedly diminished air entry. No wheeze, rhonchi, or crackle on tidal excursion. Prolonged expiratory phase. No accessory muscle usage or retractions. Hyperresonance to percussion. Normal palpation. Cardiovascular: Regular rate and rhythm with a normal S1, S2. No murmur, rub, or gallop appreciated. Unable to locate point of maximal impulse (PMI). Abdomen: Mild distention. Positive bowel sounds. Nontender on gentle palpation. No hepatosplenomegaly or masses appreciated on gentle palpation. Extremities: Without clubbing, cyanosis, or edema. Palpable pedal pulses bilaterally. LABORATORY DATA: CBC showed a hemoglobin of 11.7, hematocrit 35.3, platelet count 173,000, white blood cell count 4600. Chemistry showed a sodium of 142, potassium 3.1, chloride 95, bicarbonate 39, anion gap 8, BUN 29, creatinine 0.6, glucose 76, lactic acid 0.7, calcium 9.4, magnesium 1.8. INR from 10/23/2016 was 0.93. IMPRESSION: 1. Chronic obstructive pulmonary disease, very severe at baseline with hypoxemia. It is unknown as to whether or not she has hypercapnia, though based on her bicarbonate of 42 on admission, I suspect she does. Her disease is thought predominantly secondary to emphysema plus or minus component of chronic bronchitis. 2. High-grade small bowel obstruction, currently receiving conservative management. 3. Hypertension. 4. Hypothyroidism. 5. Gastroesophageal reflux disease. 6. Anxiety/depression. 7. Chronic pain. RECOMMENDATIONS: 1. I discussed with Ms. Zacarias that there was no specific way to "optimize" her lung function. We discussed that she is at increased risk for pneumonia, particularly if there is an upper abdominal surgery. I also discussed with her that with her poor lung function and abdominal surgery that she may require prolonged mechanical ventilation, and we may, in fact, not be able to extubate her. She states she understands these risks. 2. If she does undergo surgery and is extubated, it would be very important to aggressively start with aggressive hyperinflation therapy, as well as good pain control, so as to minimize the chance of a postoperative pneumonia. 3. If she chooses to undergo surgery, I recommend that she receive her pulmonary medications on the day of surgery and that she receive the bronchodilator just prior to undergoing anesthesia. 4. If she chooses to undergo surgery, I would recommend an arterial blood gas (ABG) be obtained as soon as it is clear she is going to agree to surgery, as it will be important to know whether or not she is a CO2 retainer. 5. I discussed with Dr. Davalos her initial statements to me that she would never accept surgery. I told her if that was the case, she needed to make sure that she discuss this with her care team and that this was documented. I told her that most likely her mental status may decrease if she worsened; and if she had not made a decision, the surgery would occur emergently. 6. I also discussed with Dr. Davalos that if surgery is deemed to be in her future, it is much safer for it to be done electively rather than emergently. Thank you for this consult, and please call us if there are any further questions or problems.
[2016-10-24] MEDS: LORazepam 2 MG/ML VIAL (J2060) IV PRN (21:15)
[2016-10-24 22:00] VITALS: BP 168/68
[2016-10-25] MEDS: HEPARIN SOD (PORCINE) 5000 UNITS/ML VIAL SC SCH ×3 (05:55→21:20)
[2016-10-25 06:00] VITALS: BP 146/79
[2016-10-25 06:26] LABS: MEAN CORPUSCULAR HEMOGLOBIN 30.4 pg (27.0-33.0); MEAN CORPUSCULAR HGB CONC 33.1 g/dl (32.0-36.5); RED CELL DISTRIBUTION WIDTH 13.5 % (11.5-14.5); WHITE BLOOD COUNT 5.7 K/mm3 (4.0-10.0)
[2016-10-25 06:39] LABS: ANION GAP 10 MEQ/L (8-16); BLOOD UREA NITROGEN 29 MG/DL (7-18); CALCIUM LEVEL 8.8 MG/DL (8.8-10.2); CARBON DIOXIDE LEVEL 36 MEQ/L (21-32); CHLORIDE LEVEL 98 MEQ/L (98-107); CREATININE FOR GFR 0.55 MG/DL (0.55-1.02); GLOMERULAR FILTRATION RATE > 60.0 (>32); GLUCOSE, FASTING 65 MG/DL (83-110); POTASSIUM SERUM 3.2 MEQ/L (3.5-5.1); SODIUM LEVEL 144 MEQ/L (136-145)
[2016-10-25] MEDS ORDERED: DEXTROSE 50% 50 ML SYRINGE IV STA (06:48)
[2016-10-25] MEDS ORDERED: DEXTROSE 50% 50 ML SYRINGE IV PRN (07:00)
[2016-10-25] MEDS ORDERED: GLUCOSE 4 GM CHEW TABLET PO PRN (07:00)
[2016-10-25] MEDS ORDERED: GLUCAGON FOR INJ 1 MG VIAL (J1610) SC PRN (07:00)
[2016-10-25] MEDS: SYMBICORT 160/4.5MCG INHALER 6GM INH SCH ×2 (07:23→19:42)
--- NOTE | 2016-10-25 09:08 | REP ---
Clinical: Follow up small bowel obstruction. Technique: Upright view of the chest with supine and upright views of the abdomen and pelvis. Comparison: 10/24/2016 Findings: Frontal view of the chest demonstrates chronic stable changes and possible small left pleural reaction. No free air below the diaphragm to suspect pneumoperitoneum. Nasogastric tube extends into the left upper quadrant. Markedly dilated small bowel with air-fluid levels is consistent with high-grade small bowel obstruction and may be slightly more pronounced than prior examination. Skeletal structures demonstrate chronic osteopenia and degenerative changes. Impression: High-grade small bowel obstruction appears slightly more pronounced than prior examination. No evidence for free air. Signed by Wang Preston MD 10/25/2016 08:59 A
[2016-10-25] MEDS: SIMETHICONE 80 MG CHEW TAB NG SCH ×4 (09:15→21:19)
[2016-10-25] MEDS: NICOTINE 14 MG/24 HR TRANSDERMAL TD SCH (09:16)
[2016-10-25] MEDS: LEVOTHYROXINE 100 MCG (0.1MG) VIAL IV SCH (09:16)
[2016-10-25] MEDS: NS 1,000 ML IV SCH (11:00)
[2016-10-25] MEDS: PANTOPRAZOLE 40MG INJ (PROTONIX) (C9113) IV SCH (12:38)
[2016-10-25] MEDS: KCL 10MEQ IN 100ML SWI (KRUN) 10 MEQ in APPROPRIATE DILUENT 1 EA IV SCH ×4 (12:39→14:14)
--- NOTE | 2016-10-25 13:04 | IPNPDOC ---
Date Seen The patient was seen on 10/25/16. Progress Note SUBJECTIVE: Patient reports feeling better, no BM, she is passing gas from below OBJECTIVE PHYSICAL EXAMINATION: VITAL SIGNS: Please see below. GENERAL: frail elderly female laying in bed nad HEENT: PERRL, dry mucous membranes, no elevation in CVP CARDIOVASCULAR: S1 S2 regular RESPIRATORY: CTA ABDOMINAL: BS+ high pitched, less distention and ttp EXTREMITIES: no c/c/e LABORATORY DATA: Please see below. MICROBIOLOGY: Please see below. IMAGING: ABX today reveals high-grade small bowel obstruction slightly more pronounced than prior exam no evidence of free air DVT prophylaxis ordered?: Heparin q8h ASSESSMENT AND PLAN: This is a 81-year-old female with high grade SBO PROBLEMS: 1. SBO: Surgical cons appreciated, likely related to previous abd surgeries and adhesions has improved symptomatically with decompression however the small bowel obstruction has not resolved as of yet. c/w NGT, NPO, anti emetics, IV pain meds. c/w IVF. The patient informed Dr. Lew and confirmed me this morning that she did not resolve on her home she would not consider any surgical option and that she would rather be kept comfortable only and then choose hospice and comfort measures only I did discuss with her at length with comfort measures only would entail no labs and vital signs normal left pleuritic measures she is agreeable with this should it come to it and she require surgery she would like to comfort measures over surgery. She tells me that her healthcare proxy is her daughter in [place] and the second of proxy is son in [place] she does not have any paperwork with her however should she fail to improve we may need to fill out a new moles form here. 2. Hypothyrooidism : c/w IV Levothyroxine. 3.Anxiety : SSRI on hold while NPO.Benzo's IV to avoid withdrawal symptoms 4. HTN: PO meds on hold, controlled at this time 5. COPD: Pulmonary consult appreciated appears to be at her baseline resp status. 6. HLD: c/w lipitor 7. Fe Def anemia: PO meds on hold 8 Chronic pain: IV pain meds for now Disposition: We'll continue to follow her status closely VS, I&O, 24H, Fishbone Vital Signs/I&O Vital Signs Date Time Temp Pulse Resp B/P Pulse Ox O2 Delivery O2 Flow Rate FiO2 10/25/16 06:00 98.4 60 19 146/79 94 Nasal Cannula 3.0 I&O- Last 24 Hours up to 6 AM 10/25/16 06:00 Intake Total 1200 ml Output Total 1995 ml Balance -795 ml Laboratory Data 24H LABS Laboratory Tests 2 10/25/16 06:03: Anion Gap 10, Blood Urea Nitrogen 29H, Creatinine 0.55, Sodium Level 144, Potassium Level 3.2L, Chloride Level 98, Carbon Dioxide Level 36H, Calcium Level 8.8, Glomerular Filtration Rate > 60.0 CBC/BMP Laboratory Tests 10/25/16 06:03 Calcium Level 8.8, Red Blood Count 3.65 L, Mean Corpuscular Volume 92.0, Mean Corpuscular Hemoglobin 30.4, Mean Corpuscular Hemoglobin Concent 33.1, Red Cell Distribution Width 13.5 Microbiology Microbiology 10/23/16 Influenza Virus Type A Antigen - Final, Complete 10/23/16 Influenza Virus Type B Antigen - Final, Complete 10/23/16 Urine Culture - Final, Complete YOSSI SOTO MD Oct 25, 2016 13:04
[2016-10-25 14:00] VITALS: BP 172/78
--- NOTE | 2016-10-25 14:25 | EDDOCDS ---
Physician Documentation [facility] Name: Farida Zacarias Age: 81 yrs Sex: Female : 1935 Arrival Date: 10/23/2016 Time: 04:23 Bed 21 Private MD: Javier Sanford M.D. Disposition: 10/23/16 10:09 Hospitalization ordered by Jourdan Davalos for Inpatient Admission. Preliminary diagnosis is Other intestinal obstruction. - Bed requested for 4 [place]. - Status is Inpatient Admission. jc4 - Condition is Stable. - Problem is new. - Symptoms are unchanged. Historical: - Allergies: no known allergies; - Home Meds: 1. albuterol sulfate 2.5 mg /3 mL (0.083 %) Inhl nebu 3 mL every 6 hours 2. amlodipine 10 mg Oral tab once daily 3. aspirin 325 mg Oral tab once daily 4. triamterene-hydrochlorothiazid 37.5-25 mg Oral tab once daily 5. potassium chloride 10 mEq Oral cpER 1 cap once daily 6. Symbicort 160-4.5 mcg/actuation inhalation HFAA 2 puffs 2 times per day 7. sertraline 100 mg oral tab 1.5 tabs once daily 8. pro air MDI 108/90 base mg/act 2 puff four times a day 9. Oxygen 2 liters 10. [place] 5-325 mg Oral tab every 6 hours as needed 11. Miralax 17 gram Oral pwpk 1 packet once daily 12. lisinopril 10 mg Oral tab 1 tab once daily 13. ferrous gluconate 325 mg (37 mg iron) Oral tab 325 mg daily 14. Lipitor 20 mg Oral tab 1 tab once daily 15. clonazepam 1 mg Oral tab 3 times daily as needed - PMHx: COPD; Hypercholesterolemia; Hypertension; Hypothyroidism; - Social history: Smoking status: Patient uses tobacco products, current every day smoker. Race: White, Ethnicity: Not or No barriers to communication noted, The patient speaks fluent Singaporean, Preferred Language: Singaporean. - Family history: Not pertinent. - : The pt / caregiver states he / she is not on anticoagulants. Home medication list is obtained from a discharge med list. - Exposure Risk Screening:: None identified. Vital Signs: 10/23 04:50 BP 176 / 70; Pulse 64; Resp 20; Temp 98.6(O); Pulse Ox 100% on 3 lpm NC; Weight 62.6 kg cf2 / 138.01 lbs; Height 5 ft. 3 in. (160.02 cm); Pain 4/10; 07:23 BP 163 / 67; Pulse 65; Resp 20; Temp 98.5(A); Pulse Ox 99% on 2 lpm NC; Pain 7/10; ja5 09:20 Pain 5/10; ja5 11:09 BP 174 / 74; Pulse 60; Resp 20; Temp 98.8(TE); Pulse Ox 95% on 2 lpm NC; Pain 4/10; ja5 12:10 BP 147 / 66; Pulse 62; Resp 20; Temp 99.5(TE); Pulse Ox 96% on 2 lpm NC; Pain 0/10; jc4 13:20 BP 153 / 70; Pulse 59; Resp 20; Temp 98.8(O); Pulse Ox 98% on 3 lpm NC; Pain 0/10; jc4 04:50 Body Mass Index 24.45 (62.60 kg, 160.02 cm) cf2 MDM: 05:17 IV Saline Lock ordered. br1 05:18 CBC with Diff Ordered. EDMS 05:18 BMP Ordered. EDMS 05:18 Liver Profile Ordered. EDMS 05:18 Lipase Ordered. EDMS 06:06 -Influenza A&B Rapid Antigen - Nose Ordered. EDMS 06:06 morphine 4 mg IVP once ordered. br1 06:06 Ondansetron 4 mg IVP once ordered. br1 06:07 NS 0.9% 1000 ml IV at 150 mL/hr continuous ordered. br1 06:07 CBC with Diff Reviewed. br1 06:07 BMP Reviewed. br1 06:07 Lipase Reviewed. br1 06:07 Liver Profile Reviewed. br1 06:07 Urinalysis Ordered. EDMS 06:07 Urine Culture Ordered. EDMS 06:08 CT ABD & PELVIS: IV and Oral Contrast Ordered. EDMS 06:09 GASTROINTESTINAL (GI) PANEL Ordered. EDMS 07:07 Urinalysis Reviewed. br1 07:07 -Influenza A&B Rapid Antigen - Nose Reviewed. br1 07:41 Financial registration complete. lg 07:49 BED REQUEST+ADM ordered. EDMS 08:09 morphine 4 mg IVP every 15 minutes; Document pain score/vitals after each dose (Hold if sd1 SBP < 90mmHg) x2 ordered. 08:19 [facility] Payment Agreement was scanned into [employer] and attached to record. lg 09:36 NG Tube, 18Fr ordered. sd1 09:41 ECG WITH READING ER PHYS+CARDIAG ordered. EDMS 11:06 Admission / Observation Status ordered. EDMS 11:23 Diatrizoate Meglumine & Sodium Liquid 10 ml PO once; mix in 290cc of water administer ja5 at 0725 ordered. 12:00 GASTROINTESTINAL (GI) PANEL Ordered. EDMS 12:10 NPO DIET ordered. EDMS 12:11 PROTHROMBIN TIME PROFILE\E\INR Ordered. EDMS 12:11 LACTIC ACID LEVEL, LACTATE Ordered. EDMS 10/25 08:02 T-Sheet-- Draft Copy was scanned into [employer] and attached to record. lg Administered Medications: 10/23 06:10 Drug: Ondansetron 4 mg [ondansetron HCl 2 mg/mL intravenous solution (2 mL)] Route: cf2 IVP; Site: left antecubital; 06:10 Drug: NS 0.9% 1000 ml [sodium chloride 0.9 % intravenous solution] Route: IV; Rate: 150 cf2 mL/hr; Site: left antecubital; 06:20 Drug: morphine 4 mg [morphine 4 mg/mL intravenous cartridge (1 mL)] Route: IVP; Site: cf2 left antecubital; 07:25 Drug: Diatrizoate Meglumine & Sodium 10 ml [diatrizoate meglumine and diat.sodium 66 ja5 %-10 % oral solution (10 mL)] Route: PO; 08:29 Drug: morphine 4 mg [morphine 4 mg/mL intravenous cartridge (1 mL)] Route: IVP; Site: ja5 left forearm; 09:20 Follow up: Pain 01/08 Adult ja5 Signatures: Dispatcher [employer] EDMS Josiane Casey MD MD sd1 Li Edward Reg Reg lg Roggie, Brian, MD MD br1 Bethanie Del Cid RN RN jc4 Iveth Hinojosa RN RN sls2 Madeline Aguillon RN RN cf2 Miranda Bustos RN RN ja5 The chart was reviewed and I authenticate all verbal orders and agree with the evaluation and treatment provided.Corrections: (The following items were deleted from the chart) 06:09 06:08 GASTROINTESTINAL (GI) PANEL+MAZIN ordered. EDMS EDMS 06:40 06:06 Straight cath ordered. br1 cf2 12:02 12:00 GASTROINTESTINAL (GI) PANEL ordered. EDMS EDMS Attachments: 08:19 [facility] Payment Agreement lg 10/25 08:02 T-Sheet-- Draft Copy lg Chart Complete MTDD
--- NOTE | 2016-10-25 14:25 | EDDOCDS ---
Nurse's Notes [facility] Name: Farida Zacarias Age: 81 yrs Sex: Female : 1935 Arrival Date: 10/23/2016 Time: 04:23 Bed 21 Private MD: Javier Sanford M.D. Diagnosis: Other intestinal obstruction Presentation: 10/23 04:47 Presenting complaint: Patient states: "my nose is running constantly and I have a cough cf2 but now I am vomiting and can't hold anything down" EMS states: on 3 lpm nasal cannula at home. No vomiting enroute to facility. Adult Sepsis Screening: The patient does not have new or worsening altered mentation. Patient's respiratory rate is less than 22. Systolic blood pressure is greater than 100. Patient has a qSOFA score of 0- Negative Sepsis Screen. Suicide/Homicide risk assessment- the patient denies having any suicidal and/or homicidal ideations and does not present with any other emotional, behavioral or mental health complaints. Status: Patient is not a media services specialist or dependent. Transition of care: patient was not received from another setting of care. 04:47 Acuity: MANUELA Level 2 cf2 04:47 Method Of Arrival: Ambulance cf2 Triage Assessment: 04:50 General: Appears in no apparent distress, Behavior is appropriate for age, cooperative. cf2 Pain: Denies pain. The patient is triaged at the bedside. See Assessment in Nurses Notes section of ED record. Neurological: No deficits noted. EENT: Nares with drainage noted. Cardiovascular: Rhythm is sinus rhythm. Historical: - Allergies: no known allergies; - Home Meds: 1. albuterol sulfate 2.5 mg /3 mL (0.083 %) Inhl nebu 3 mL every 6 hours 2. amlodipine 10 mg Oral tab once daily 3. aspirin 325 mg Oral tab once daily 4. triamterene-hydrochlorothiazid 37.5-25 mg Oral tab once daily 5. potassium chloride 10 mEq Oral cpER 1 cap once daily 6. Symbicort 160-4.5 mcg/actuation inhalation HFAA 2 puffs 2 times per day 7. sertraline 100 mg oral tab 1.5 tabs once daily 8. pro air MDI 108/90 base mg/act 2 puff four times a day 9. Oxygen 2 liters 10. Point 5-325 mg Oral tab every 6 hours as needed 11. Miralax 17 gram Oral pwpk 1 packet once daily 12. lisinopril 10 mg Oral tab 1 tab once daily 13. ferrous gluconate 325 mg (37 mg iron) Oral tab 325 mg daily 14. Lipitor 20 mg Oral tab 1 tab once daily 15. clonazepam 1 mg Oral tab 3 times daily as needed - PMHx: COPD; Hypercholesterolemia; Hypertension; Hypothyroidism; - Social history: Smoking status: Patient uses tobacco products, current every day smoker. Race: White, Ethnicity: Not or No barriers to communication noted, The patient speaks fluent Somali, Preferred Language: Somali. - Family history: Not pertinent. - : The pt / caregiver states he / she is not on anticoagulants. Home medication list is obtained from a discharge med list. - Exposure Risk Screening:: None identified. Screenin:45 Screening information is obtained from the patient. Fall risk: No risks identified. cf2 Assistance ADL's: requires no assistance with activities of daily living. Abuse/DV Screen: The patient / caregiver reports he/she is: not in a situation that causes fear, pain or injury. Nutritional screening: No deficits noted. Advance Directives: Further advance directive information is declined. home support is adequate. Assessment: 06:45 Reassessment: Patient states feeling better. Adult Sepsis Screening: The patient does cf2 not have new or worsening altered mentation. Patient's respiratory rate is less than 22. Systolic blood pressure is greater than 100. Patient has a qSOFA score of 0- Negative Sepsis Screen. General: Appears ill, Behavior is appropriate for age, cooperative. Pain: Location: abdomen. Neurological: No deficits noted. EENT: No deficits noted. Cardiovascular: No deficits noted. Respiratory:. GI: Bowel sounds present X 4 quads. Abd is soft Abd is non tender. GI: Abdomen is distended, Reports nausea, vomiting. : No deficits noted. Derm: No deficits noted. Musculoskeletal: No deficits noted. Injury Description: No known injury. 07:23 General: Appears in no apparent distress, Behavior is appropriate for age, cooperative. ja5 Pain: Location: right lower quadrant and left lower quadrant Pain currently is 7 out of 10 on a pain scale. Neurological: Level of Consciousness is awake, alert, Oriented to person, place, time. Cardiovascular: Capillary refill < 3 seconds Heart tones S1 S2 present. Respiratory: Airway is patent Respiratory effort is even, unlabored, Respiratory pattern is regular. GI: Abdomen is distended, Bowel sounds present X 4 quads. hyperactive in right upper quadrant and abdomen diffusely Abd is soft X 4 quads Abd is non tender X 4 quads Reports nausea, vomiting. Derm: Skin is pink, warm & dry. 08:23 General: Patient back from CT, states she is still having pain to back and abdomen ja5 rated 7/10 on pain scale. New orders for pain management received. Respirations even and unlabored, color is pink, SR on monitor technician. Bed in low position, visitor at bedside. . 09:25 General: Patient asleep with visitor in room. Patient respirations are even and ja5 unlabored, SR on monitor technician, patient arouses easily and is alert. She states that the morphine helped and her pain has decreased. . 10:46 General: 18 tongan NG placed 55cm to left nare, 30cc air bolus auscultated and gastric ja5 contents aspirated to verify placement. Patient tolerated procedure well. NG tube was placed on low, continuous suction with green gastric contents present in suction chamber. Patient states that her abdomen is still upset but her pain level has not increased at this time. . 12:30 General: Pt moved to Room 21. Pt alert, oriented. Color pink, skin warm and dry. jc4 Respirations easy and full. NGT in place. Denies any abdominal pain at this time. Maintained on 3 liters nasal canula. 12:50 General: Patient resting in stretcher, NG to left nare suctioning green gastric fluid ja5 with approx 700ml in suction chamber. Respirations are even and unlabored, color is pink, SR reading on monitor technician. Patient has stated that she feels some relief in her stomach ever since the NG tube was placed for suction. Patient was transferred to a holding bed, all needs addressed at this time. . 13:20 General: Appears in no apparent distress, Behavior is cooperative. Pain: Denies pain. jc4 Neurological: Level of Consciousness is awake, alert, Oriented to person, place, time. Respiratory: Airway is patent Respiratory effort is even, unlabored, Respiratory pattern is regular, symmetrical. GI: NGT in place, clamped. for transport. Derm: Skin is pink, warm & dry. Vital Signs: 04:50 BP 176 / 70; Pulse 64; Resp 20; Temp 98.6(O); Pulse Ox 100% on 3 lpm NC; Weight 62.6 cf2 kg; Height 5 ft. 3 in. (160.02 cm); Pain 4/10; 07:23 BP 163 / 67; Pulse 65; Resp 20; Temp 98.5(A); Pulse Ox 99% on 2 lpm NC; Pain 7/10; ja5 09:20 Pain 5/10; ja5 11:09 BP 174 / 74; Pulse 60; Resp 20; Temp 98.8(TE); Pulse Ox 95% on 2 lpm NC; Pain 4/10; ja5 12:10 BP 147 / 66; Pulse 62; Resp 20; Temp 99.5(TE); Pulse Ox 96% on 2 lpm NC; Pain 0/10; jc4 13:20 BP 153 / 70; Pulse 59; Resp 20; Temp 98.8(O); Pulse Ox 98% on 3 lpm NC; Pain 0/10; jc4 04:50 Body Mass Index 24.45 (62.60 kg, 160.02 cm) cf2 Vitals: 04:50 Log In Time N/A - ambulance arrival. cf2 ED Course: 04:24 Patient visited by Rohan Thacker PCA. kb5 04:24 Patient moved to Waiting kb5 04:24 Patient moved to I8 / 16 kb5 04:25 Javier Sanford is Private Physician. kb5 04:47 Madeline Aguillon,LUCIO is Primary Nurse. cf2 04:47 Patient visited by Madeline Aguillon,LUCIO. cf2 04:48 Triage Initiated cf2 05:31 Patient visited by Madeline Aguillon,LUCIO. cf2 05:56 Edvin Roberts MD is Attending Physician. br1 06:05 Patient visited by Edvin Roberts MD. br1 06:39 Patient visited by Madeline Aguillon,LUCIO. cf2 06:45 Patient visited by Madeline Aguillon,LUCIO. cf2 06:45 The patient / caregiver is instructed regarding the plan of care and ED course. Patient cf2 has correct armband on for positive identification. Placed in gown. Bed in low position. Call light in reach. Side rails up X 1. Side rails up X2. Adult w/ patient. playground monitor on. Pulse ox on. NIBP on. Property :Personal belongings accompany Pt. Door closed. Noise minimized. Visitors limited. Lights dimmed. Moved to private room. Verbal reassurance given. Warm blanket given. Pillow given. Head of bed elevated. Diet: Patient is NPO. Assisted with bedpan. 06:45 Inserted saline lock: 18 gauge in left forearm and blood collected. The patient cf2 tolerated the procedure well. No procedures done that require assistance. O2 via nasal cannula \\T\\ 3L/min. 07:03 Bethanie Del Cid, LUCIO is Primary Nurse. jc4 07:05 Miranda Bustos RN is Primary Nurse. ja5 07:12 Attending Physician role handed off by Edvin Roberts MD sd1 07:12 Josiane Casey MD is Attending Physician. sd1 07:23 Patient visited by Miranda Bustos RN. ja5 08:19 [facility] Payment Agreement was scanned into [employer] and attached to record. lg 08:20 Patient visited by Miranda Bustos RN. ja5 08:45 CT ABD & PELVIS: IV and Oral Contrast Returned. EDMS 10:08 Jourdan Davalos is Hospitalizing Provider. sd1 10:49 Patient visited by Radha Castillo. cmb 10:49 Assisted with bedpan. cmb 10:51 NGT inserted 18 Fr. via left nare. Placement verified. Returned gastric contents. to ja5 continuous suction. Returned gastric contents. Patient tolerated well. 11:10 Patient visited by Miranda Bustos RN. ja5 12:18 Patient moved to [facility] 12:30 Report given to Alonzo Rodríguez RN. jc4 12:38 Patient moved to 21 hs1 10/25 08:02 T-Sheet-- Draft Copy was scanned into [employer] and attached to record. lg Administered Medications: 10/23 06:10 Drug: Ondansetron 4 mg [ondansetron HCl 2 mg/mL intravenous solution (2 mL)] Route: cf2 IVP; Site: left antecubital; 06:10 Drug: NS 0.9% 1000 ml [sodium chloride 0.9 % intravenous solution] Route: IV; Rate: 150 cf2 mL/hr; Site: left antecubital; 06:20 Drug: morphine 4 mg [morphine 4 mg/mL intravenous cartridge (1 mL)] Route: IVP; Site: cf2 left antecubital; 07:25 Drug: Diatrizoate Meglumine & Sodium 10 ml [diatrizoate meglumine and diat.sodium 66 ja5 %-10 % oral solution (10 mL)] Route: PO; 08:29 Drug: morphine 4 mg [morphine 4 mg/mL intravenous cartridge (1 mL)] Route: IVP; Site: ja5 left forearm; 09:20 Follow up: Pain 01/08 Adult ja5 Intake: 07:25 PO: 300.00ml (Contrast); Total: 300.00ml. ja5 Output: 13:21 Gastric: 950.00ml (NGT); Total: 950.00ml. jc4 Order Results: Lab Order: CBC with Diff; SPEC'M 10/23/16 04:45 Test: WHITE BLOOD COUNT; Value: 6.8; Range: 4.0-10.0; Units: K/mm3; Status: F Test: RED BLOOD COUNT; Value: 4.24; Range: 4.00-5.40; Units: M/mm3; Status: F Test: HEMOGLOBIN; Value: 12.8; Range: 12.0-16.0; Units: g/dl; Status: F Test: HEMATOCRIT; Value: 38.6; Range: 36.0-47.0; Units: %; Status: F Test: MEAN CORPUSCULAR VOLUME; Value: 91.1; Range: 80.0-96.0; Units: fl; Status: F Test: MEAN CORPUSCULAR HEMOGLOBIN; Value: 30.2; Range: 27.0-33.0; Units: pg; Status: F Test: MEAN CORPUSCULAR HGB CONC; Value: 33.1; Range: 32.0-36.5; Units: g/dl; Status: F Test: RED CELL DISTRIBUTION WIDTH; Value: 13.3; Range: 11.5-14.5; Units: %; Status: F Test: PLATELET COUNT, AUTOMATED; Value: 196; Range: 150-450; Units: k/mm3; Status: F Test: NEUTROPHILS %; Value: 83.3; Range: 36.0-66.0; Abnormal: Above high normal; Units: %; Status: F Test: LYMPH %; Value: 6.2; Range: 24.0-44.0; Abnormal: Below low normal; Units: %; Status: F Test: MONO %; Value: 7.5; Range: 0.0-5.0; Abnormal: Above high normal; Units: %; Status: F Test: EOS %; Value: 1.7; Range: 0.0-3.0; Units: %; Status: F Test: BASO %; Value: 0.3; Range: 0.0-1.0; Units: %; Status: F Test: LARGE UNSTAINED CELL %; Value: 0.9; Range: 0.0-4.0; Units: %; Status: F Test: NEUTROPHILS #; Value: 5.6; Range: 1.8-7.7; Units: K/mm3; Status: F Test: LYMPH #; Value: 0.5; Range: 1.5-4.5; Abnormal: Below low normal; Units: K/mm3; Status: F Test: MONO #; Value: 0.5; Range: 0.0-0.8; Units: K/mm3; Status: F Test: EOS #; Value: 0.1; Range: 0.0-0.50; Units: K/mm3; Status: F Test: BASO #; Value: 0.0; Range: 0.0-0.2; Units: K/mm3; Status: F Test: LARGE UNSTAINED CELL #; Value: 0.1; Range: 0.0-0.4; Units: K/mm3; Status: F Lab Order: [facility]; SPEC'M 10/23/16 04:45 Test: GLUCOSE, FASTING; Value: 97; Range: 83-110; Units: MG/DL; Status: F Test: BLOOD UREA NITROGEN; Value: 33; Range: 7-18; Abnormal: Above high normal; Units: MG/DL; Status: F Test: CREATININE FOR GFR; Value: 0.82; Range: 0.55-1.02; Units: MG/DL; Status: F Test: GLOMERULAR FILTRATION RATE; Value: > 60.0; Range: >32; Status: F Test: SODIUM LEVEL; Value: 139; Range: 136-145; Units: MEQ/L; Status: F Test: POTASSIUM SERUM; Value: 3.9; Range: 3.5-5.1; Units: MEQ/L; Status: F Test: CHLORIDE LEVEL; Value: 92; Range: 98-107; Abnormal: Below low normal; Units: MEQ/L; Status: F Test: CARBON DIOXIDE LEVEL; Value: 42; Range: 21-32; Abnormal: Above high normal; Units: MEQ/L; Status: F Test: ANION GAP; Value: 5; Range: 8-16; Abnormal: Below low normal; Units: MEQ/L; Status: F Test: CALCIUM LEVEL; Value: 10.2; Range: 8.8-10.2; Units: MG/DL; Status: F Test Note: ; Units are mL/min/1.73 m2 Chronic Kidney Disease Staging per NKF: Stage I & II GFR >=60 Normal to Mildly Decreased Stage III GFR 30-59 Moderately Decreased Stage IV GFR 15-29 Severely Decreased Stage V GFR <15 Very Little GFR Left ESRD GFR <15 on DRYING SUPERVISOR Lab Order: Liver Profile; SPEC'M 10/23/16 04:45 Test: AST/SGOT; Value: 16; Range: 15-37; Units: U/L; Status: F Test: ALT/SGPT; Value: 16; Range: 12-78; Units: U/L; Status: F Test: ALKALINE PHOSPHATASE; Value: 58; Range: 45-117; Units: U/L; Status: F Test: BILIRUBIN,TOTAL; Value: 0.5; Range: 0.2-1.0; Units: MG/DL; Status: F Test: BILIRUBIN,DIRECT; Value: 0.2; Range: 0.0-0.2; Units: MG/DL; Status: F Test: TOTAL PROTEIN; Value: 6.7; Range: 6.4-8.2; Units: GM/DL; Status: F Test: ALBUMIN; Value: 3.6; Range: 3.2-5.2; Units: GM/DL; Status: F Test: ALBUMIN/GLOBULIN RATIO; Value: 1.16; Range: 1.00-1.93; Status: F Lab Order: Lipase; SPEC'M 10/23/16 04:45 Test: LIPASE; Value: 59; Range: 73-393; Abnormal: Below low normal; Units: U/L; Status: F Lab Order: -Influenza A&B Rapid Antigen - Nose; SPEC'M 10/23/16 04:45 Test: INFLUENZA A RAPID SCR by ICA; Value: INFLUENZA A RESULTS NEGATIVE; Status: F Test: INFLUENZA A RAPID SCR by ICA; Value: Comments:; Status: F Test: INFLUENZA B RAPID SCR by ICA; Value: INFLUENZA B RESULTS NEGATIVE; Status: F Test Note: ; The Influenza test is a direct rapid immunoassay for the qualitative detection of Influenza viral antigen. Cell culture (Viral Culture) testing should be considered to confirm NEGATIVE results and to assist in detecting other viruses that can provide similar clinical symptoms. Please contact the lab within 24 hours ([phone] if confirmatory testing is desired. Lab Order: Urinalysis; SPEC'M 10/23/16 04:45 Test: APPEARANCE, URINE; Value: HAZY; Range: CLEAR; Status: F Test: COLOR, URINE; Value: YELLOW; Range: YELLOW; Status: F Test: PH,URINE; Value: 6.0; Range: 5.0-9.0; Units: UNITS; Status: F Test: SPECIFIC GRAVITY URINE AUTO; Value: 1.014; Range: 1.002-1.035; Status: F Test: PROTEIN, URINE AUTO; Value: NEGATIVE; Range: NEGATIVE; Units: mg/dL; Status: F Test: GLUCOSE, URINE (UA) AUTO; Value: NEGATIVE; Range: NEGATIVE; Units: mg/dL; Status: F Test: KETONE, URINE AUTO; Value: TRACE; Range: NEGATIVE; Abnormal: Above high normal; Units: mg/dL; Status: F Test: UROBILINOGEN, URINE AUTO; Value: 0.2; Range: 0.0-2.0; Units: mg/dL; Status: F Test: BILIRUBIN, URINE AUTO; Value: NEGATIVE; Range: NEGATIVE; Status: F Test: NITRITE, URINE AUTO; Value: NEGATIVE; Range: NEGATIVE; Status: F Test: LEUKOCYTE ESTERASE, URINE AUTO; Value: NEGATIVE; Range: NEGATIVE; Status: F Test: BLOOD, URINE BLOOD; Value: NEGATIVE; Range: NEGATIVE; Status: F Test: WBC, URINE AUTO; Value: 4; Range: 0-3; Abnormal: Above high normal; Units: /HPF; Status: F Test: RBC, URINE AUTO; Value: 5; Range: 0-3; Abnormal: Above high normal; Units: /HPF; Status: F Test: BACTERIA, URINE AUTO; Value: NEGATIVE; Range: NEGATIVE; Status: F Test: SQUAMOUS EPITHELIAL CELL UR AU; Value: 1; Range: 0-6; Units: /HPF; Status: F Test: MUCUS, URINE; Value: SMALL; Range: NEGATIVE; Status: F Test: HYALINE CAST, URINE AUTO; Value: 0; Range: 0-1; Units: /LPF; Status: F Test: AMORPHOUS SEDIMENT; Value: SMALL; Range: NEGATIVE; Abnormal: Above high normal; Status: F Lab Order: PROTHROMBIN TIME PROFILE\\E\\INR; SPEC'M 10/23/16 12:25 Test: PROTHROMBIN TIME; Value: 12.6; Range: 12.3-14.5; Units: SECONDS; Status: F Test: INR; Value: 0.93; Status: F Test Note: ; THERAPUTIC HUMAN INR VALUES INDICATIONS NORMAL RANGES PROPHYLAXIS/TREATMENT OF: VENOUS THROMBOSIS 2.0-3.0 PULMONARY EMBOLISM 2.0-3.0 PREVENTION OF SYSTEMIC EMBOLISM FROM: TISSUE HEART VALVES 2.0-3.0 ACUTE MYOCARDIAL INFARCTION 2.0-3.0 VALVULAR HEART DISEASE 2.0-3.0 ATRIAL FIBRILLATION 2.0-3.0 MECHANICAL VALVES(HIGH RISK) 2.5-3.5 RECURRENT MYOCARDIAL INFARCTION 2.5-3.5 Lab Order: LACTIC ACID LEVEL, LACTATE; SPEC'M 10/23/16 12:25 Test: LACTIC ACID SEPSIS PROTOCOL; Value: 0.7; Range: 0.4-2.0; Units: MMOL/L; Status: F Radiology Order: CT ABD & PELVIS: IV and Oral Contrast Test: CT ABD & PELVIS: IV and Oral Contrast REASON FOR EXAMINATION: Abdomen Pain; Clinical: Abdominal pain and distension.; ; Technique: Axial contrast enhanced images from the lung bases to the pubic; symphysis using oral and 100 ml Isovue 370 intravenous contrast material with; coronal and sagittal re-formations.; ; Comparison: 07/16/2006.; ; Findings:; There is evidence for high-grade mid small bowel obstruction. Transition is; identified in the mid lower abdomen/pelvis at the level of the mid/distal jejunum; (images 74 - 65). The remainder of the small bowel and colon appear relatively; normal caliber. There is no evidence for free air. Small to moderate amount of; ascites noted.; ; Liver, spleen, pancreas, gallbladder, and right adrenal gland are normal. Left; adrenal adenoma noted. Kidneys demonstrate bilateral cysts measuring up to 9 cm; right kidney and 4 cm left kidney. Pelvis demonstrates normal bladder and; evidence for prior hysterectomy. Extensive atherosclerotic changes to the; descending thoracic and abdominal aorta noted with dilatation of the descending; thoracic aorta to approximately 4.7 cm just above the diaphragm and the of the; infrarenal abdominal aorta measuring up to 3.3 cm diameter. Musculoskeletal; structures demonstrate degenerative changes.; ; Impression:; 1. High-grade small bowel obstruction with transition at the mid jejunum in the; mid abdomen/pelvis as detailed above. No free air. Mild to moderate ascites.; 2. Large bilateral renal cysts (right greater than left) up to 9 cm.; 3. Extensive atherosclerotic changes of the aorta including aneurysmal; dilatation to the descending thoracic aorta and mild dilatation to the infrarenal; abdominal aorta.; ; ; Signed by; Wang Preston MD 10/23/2016 08:32 A; Outcome: 10:09 Decision to Hospitalize by Provider. sd1 13:09 Discharge Assessment: Patient awake, alert and oriented x 3. No cognitive and/or jc4 functional deficits noted. Patient verbalized understanding of disposition instructions. patient administered narcotics - yes. Patient was admitted to the hospital or transferred to another facility. The following High Risk Discharge criteria are identified: None. Admitted to Med/Surg accompanied by tech, via stretcher, with oxygen, with chart. Condition: stable. CT Study completed. Admission hand-off: Report Faxed Fax receipt verified by Melvina. 13:23 Patient left the ED. jc4 Signatures: Dispatcher [employer] EDMS Josiane Casey MD MD sd1 Iram Nichole, RN RN Li Alfonso, Orion Reg lg Rohan Thacker, TRADING FLOOR OPERATOR TRADING FLOOR OPERATOR kb5 Edvin Roberts MD MD br1 Francy Roy RN RN hs1 Bethanie Del Cid RN RN jc4 Radha Castillo Christina,LUCIO RN cf2 Akash,Miranda,RN RN ja5 Corrections: (The following items were deleted from the chart) 10:52 10:46 General: 18 tongan NG placed 55cm to left nare, 30cc air bolus auscultated and ja5 gastric contents aspirated to verify placement. Patient tolerated procedure well. NG tube was placed on low, intermittent suction with green gastric contents present in suction chamber. Patient states that her abdomen is still upset but her pain level has not increased at this time. . ja5 12:54 07:23 GI: Abdomen is flat, Bowel sounds present X 4 quads. hyperactive in right upper ja5 quadrant and abdomen diffusely Abd is soft X 4 quads Abd is non tender X 4 quads Reports nausea, vomiting, ja5 Chart Complete MTDD
[2016-10-25 18:42] VITALS: BP 142/58
[2016-10-25 22:00] VITALS: BP 174/78
[2016-10-26] MEDS: NS 1,000 ML IV SCH ×2 (00:30→16:41)
--- NOTE | 2016-10-26 01:21 | CR ---
DATE OF CONSULTATION: 10/23/2016 BRIEF HISTORY OF PRESENT ILLNESS: The patient is an 81-year-old white female who presents with about a 72-hour history of some diarrhea symptoms on Friday and Friday and then she had some significant nausea, vomiting on the day of admission. There was one day that she did not have any abdominal pain, nausea, or vomiting and that was 48 hours prior to admission, but since that time, she has really had no bowel movements. No fevers or chills. No previous history of small bowel obstructions. She has had a recent admission for significant COPD exacerbation and is here for a small bowel obstruction seen on CT scan. She has some significant crampy abdominal pain and since having an NG tube placed in the emergency room, the patient's abdominal pain improved substantially. However, she is still not having a bowel movement. PAST MEDICAL HISTORY: Significant for history of chronic obstructive pulmonary disease, history of GE reflux, history of dyslipidemia, history of depression, history of hypertension, history of anxiety, history of Graves disease with hypothyroidism, history of abdominal aortic aneurysm repair, history of anemia, history of appendectomy, history of hysterectomy. MEDICATIONS: Include hydrocodone, amlodipine, aspirin, atorvastatin, clonazepam, iron, hydrochlorothiazide, Synthroid, lisinopril, multivitamin, MiraLax, potassium, sertraline, albuterol, Ventolin, Symbicort. PHYSICAL EXAMINATION: Reveals an 81-year-old female who looks stated age. HEENT is unremarkable. NECK: Supple without adenopathy. Lungs reveal crackles bilaterally with a few wheezes. Heart is regular. Abdomen is distended, tympanitic without guarding, without rebound. No peritoneal signs are appreciated. No evidence of hernias are appreciated. IMPRESSION AND PLAN: The patient has evidence of a small bowel obstruction on CT scan. At this point she needs to be nothing by mouth, IV fluids and NG tube for decompression. In addition, at this point, my concern is that she has some significant pulmonary disease. Hopefully we will be able to have her resolve without operative intervention, but will see what followup KUB in the morning shows. We discussed our current plan with her and her daughter, who is present, and we will continue with current plan at this time.
[2016-10-26] MEDS: HEPARIN SOD (PORCINE) 5000 UNITS/ML VIAL SC SCH ×3 (05:26→21:51)
[2016-10-26 05:39] LABS: MEAN CORPUSCULAR HEMOGLOBIN 30.4 pg (27.0-33.0); MEAN CORPUSCULAR HGB CONC 33.8 g/dl (32.0-36.5); RED CELL DISTRIBUTION WIDTH 13.3 % (11.5-14.5); WHITE BLOOD COUNT 8.3 K/mm3 (4.0-10.0)
[2016-10-26 05:48] LABS: ANION GAP 13 MEQ/L (8-16); BLOOD UREA NITROGEN 16 MG/DL (7-18); CALCIUM LEVEL 8.2 MG/DL (8.8-10.2); CARBON DIOXIDE LEVEL 32 MEQ/L (21-32); CHLORIDE LEVEL 96 MEQ/L (98-107); CREATININE FOR GFR 0.43 MG/DL (0.55-1.02); GLOMERULAR FILTRATION RATE > 60.0 (>32); GLUCOSE, FASTING 65 MG/DL (83-110); POTASSIUM SERUM 2.9 MEQ/L (3.5-5.1); SODIUM LEVEL 141 MEQ/L (136-145)
[2016-10-26 06:00] VITALS: BP 180/78
[2016-10-26] MEDS ORDERED: KCL 10MEQ IN D5/0.45NS 1000ML 1,000 ML IV SCH ×2 (06:45→07:00)
[2016-10-26] MEDS ORDERED: KCL 10MEQ IN 100ML SWI (KRUN) 10 MEQ in APPROPRIATE DILUENT 1 EA IV SCH ×2 (07:00)
[2016-10-26 07:01] LABS: MAGNESIUM LEVEL 1.6 MG/DL (1.8-2.4)
[2016-10-26] MEDS: KCL 10MEQ IN 100ML SWI (KRUN) 10 MEQ in APPROPRIATE DILUENT 1 EA IV SCH ×12 (07:32→21:50)
[2016-10-26] MEDS: SYMBICORT 160/4.5MCG INHALER 6GM INH SCH ×2 (07:44→20:03)
[2016-10-26 08:10] VITALS: BP 182/81
[2016-10-26] MEDS: MAG SULF 1GM/100ML (MAG RUN) 1 GM in APPROPRIATE DILUENT 1 EA IV SCH ×2 (08:56→11:36)
--- NOTE | 2016-10-26 09:35 | REP ---
Clinical: Follow up small bowel obstruction. Technique: Upright view of the chest with supine and upright views of the abdomen and pelvis. Comparison: 10/25/2016. Findings: Bowel gas pattern is essentially unchanged and again demonstrates dilated loops with air-fluid levels consistent with small bowel obstruction. No free air below the diaphragm to suspect pneumoperitoneum/perforation. Nasogastric tube courses below left hemidiaphragm. Stable chronic pleuroparenchymal changes noted throughout the bilateral lung blake. Skeletal structures demonstrate osteopenia and degenerative changes including chronic levoconvex scoliosis and chronic-appearing compression deformities of multiple lumbar vertebral bodies. Impression: Continued evidence for small bowel obstruction without significant change from prior examination. Signed by Wang Preston MD 10/26/2016 09:26 A
[2016-10-26] MEDS: SIMETHICONE 80 MG CHEW TAB NG SCH ×4 (10:08→20:21)
[2016-10-26] MEDS: LEVOTHYROXINE 100 MCG (0.1MG) VIAL IV SCH (10:09)
[2016-10-26] MEDS: NICOTINE 14 MG/24 HR TRANSDERMAL TD SCH (10:09)
--- NOTE | 2016-10-26 13:10 | IPNPDOC ---
Date Seen The patient was seen on 10/26/16. Progress Note SUBJECTIVE: Patient reports feeling unchanged from previous day, no flatus from below or bowel movements OBJECTIVE PHYSICAL EXAMINATION: VITAL SIGNS: Please see below. GENERAL: frail elderly female laying in bed nad HEENT: PERRL, dry mucous membranes, no elevation in CVP CARDIOVASCULAR: S1 S2 regular RESPIRATORY: CTA ABDOMINAL: BS+ high pitched, ttp EXTREMITIES: no c/c/e LABORATORY DATA: Please see below. MICROBIOLOGY: Please see below. IMAGING: ABX today reveals high-grade small bowel obstruction no significant change from previous days exam DVT prophylaxis ordered?: Heparin q8h ASSESSMENT AND PLAN: This is a 81-year-old female with high grade SBO PROBLEMS: 1. SBO: Surgical cons appreciated, likely related to previous abd surgeries and adhesions has improved symptomatically with decompression however the small bowel obstruction has not resolved. c/w NGT, NPO, anti emetics, IV pain meds. c /w IVF. I did discuss with Dr. Reed he did not have any further suggestions recommendations that could help alleviate the small bowel obstruction other than surgery which the patient has already clearly denied declined once again to me this morning. Dr. Reed suggested weight giving her a trial of 3-4 days with an NG tube to see if there is any improvement or resolution of her symptoms today is day 3 and we have no such result we will give her an additional 24 hours. I did meet with the patient her friend today and they've agreed with this plan that if she fails to improve the next 24 hours we will let for comfort measures only and home hospice ideally Friday knowing that this would be the end of her life declining surgery. The patient has discussed this with her daughter who is her healthcare proxy and she has been weight aware. We will watch her for additional 24 hours if no improvement with a lot of multiform tomorrow 2. Hypothyrooidism : c/w IV Levothyroxine. 3.Anxiety : SSRI on hold while NPO.Benzo's IV to avoid withdrawal symptoms 4. HTN: PO meds on hold, controlled at this time 5. COPD: Pulmonary consult appreciated appears to be at her baseline resp status. 6. HLD: c/w lipitor 7. Fe Def anemia: PO meds on hold 8 Chronic pain: IV pain meds for now Disposition: We'll continue to follow her status closely VS, I&O, 24H, Fishbone Vital Signs/I&O Vital Signs Date Time Temp Pulse Resp B/P Pulse Ox O2 Delivery O2 Flow Rate FiO2 10/26/16 08:10 98.0 64 28 182/81 92 Nasal Cannula 3.0 I&O- Last 24 Hours up to 6 AM 10/26/16 05:59 Intake Total 2450 ml Output Total 2025 ml Balance 425 ml Laboratory Data 24H LABS Laboratory Tests 2 10/26/16 05:26: Anion Gap 13, Blood Urea Nitrogen 16, Creatinine 0.43L, Sodium Level 141, Potassium Level 2.9*L, Chloride Level 96L, Carbon Dioxide Level 32, Calcium Level 8.2L, Glomerular Filtration Rate > 60.0, Magnesium Level 1.6L CBC/BMP Laboratory Tests 10/26/16 05:26 Calcium Level 8.2 L, Red Blood Count 4.02, Mean Corpuscular Volume 90.0, Mean Corpuscular Hemoglobin 30.4, Mean Corpuscular Hemoglobin Concent 33.8, Red Cell Distribution Width 13.3 Microbiology Microbiology 10/23/16 Influenza Virus Type A Antigen - Final, Complete 10/23/16 Influenza Virus Type B Antigen - Final, Complete 10/23/16 Urine Culture - Final, Complete YOSSI SOTO MD Oct 26, 2016 13:10
[2016-10-26] MEDS: PANTOPRAZOLE 40MG INJ (PROTONIX) (C9113) IV SCH (13:37)
[2016-10-26 14:00] VITALS: BP 186/70
[2016-10-26 14:32] LABS: ANION GAP 12 MEQ/L (8-16); BLOOD UREA NITROGEN 15 MG/DL (7-18); CALCIUM LEVEL 7.7 MG/DL (8.8-10.2); CARBON DIOXIDE LEVEL 33 MEQ/L (21-32); CHLORIDE LEVEL 96 MEQ/L (98-107); GLOMERULAR FILTRATION RATE > 60.0 (>32); GLUCOSE, FASTING 87 MG/DL (83-110); MAGNESIUM LEVEL 2.4 MG/DL (1.8-2.4); POTASSIUM SERUM 3.5 MEQ/L (3.5-5.1); SODIUM LEVEL 141 MEQ/L (136-145)
[2016-10-26 17:50] LABS: ANION GAP 14 MEQ/L (8-16); BLOOD UREA NITROGEN 13 MG/DL (7-18); CALCIUM LEVEL 7.7 MG/DL (8.8-10.2); CARBON DIOXIDE LEVEL 33 MEQ/L (21-32); CHLORIDE LEVEL 96 MEQ/L (98-107); CREATININE FOR GFR 0.35 MG/DL (0.55-1.02); GLOMERULAR FILTRATION RATE > 60.0 (>32); GLUCOSE, FASTING 74 MG/DL (83-110); SODIUM LEVEL 143 MEQ/L (136-145)
[2016-10-26 18:06] LABS: POTASSIUM SERUM 2.9 MEQ/L (3.5-5.1)
[2016-10-26 21:00] VITALS: BP 210/106
[2016-10-26] MEDS: MORPHINE 2 MG/ML 1ML SYRINGE IV PRN (21:54)
[2016-10-26] MEDS: LORazepam 2 MG/ML VIAL (J2060) IV PRN (23:24)
[2016-10-27] MEDS: HEPARIN SOD (PORCINE) 5000 UNITS/ML VIAL SC SCH (05:04)
[2016-10-27 06:00] VITALS: BP 198/78
[2016-10-27 06:13] LABS: MEAN CORPUSCULAR HGB CONC 34.1 g/dl (32.0-36.5); RED CELL DISTRIBUTION WIDTH 13.5 % (11.5-14.5); WHITE BLOOD COUNT 6.2 K/mm3 (4.0-10.0)
[2016-10-27 06:26] LABS: ANION GAP 14 MEQ/L (8-16); BLOOD UREA NITROGEN 10 MG/DL (7-18); CALCIUM LEVEL 8.1 MG/DL (8.8-10.2); CARBON DIOXIDE LEVEL 31 MEQ/L (21-32); CHLORIDE LEVEL 97 MEQ/L (98-107); GLOMERULAR FILTRATION RATE > 60.0 (>32); GLUCOSE, FASTING 62 MG/DL (83-110); SODIUM LEVEL 142 MEQ/L (136-145)
[2016-10-27 06:49] LABS: POTASSIUM SERUM 2.9 MEQ/L (3.5-5.1)
[2016-10-27] MEDS: NS 1,000 ML IV SCH (07:30)
[2016-10-27] MEDS: SYMBICORT 160/4.5MCG INHALER 6GM INH SCH (07:42)
--- NOTE | 2016-10-27 08:55 | REP ---
Clinical: Small bowel obstruction. Technique: Upright view of the chest and abdomen with supine view of the abdomen and pelvis. Comparison: 10/26/2016. Findings: Continued evidence for high-grade small bowel obstruction without significant change. Chronic changes to the bilateral lung blake as well as to the musculoskeletal structures again noted. Impression: Continued evidence for high-grade small bowel obstruction. Signed by Wang Preston MD 10/27/2016 08:47 A
[2016-10-27] MEDS: NICOTINE 14 MG/24 HR TRANSDERMAL TD SCH (09:48)
[2016-10-27] MEDS: LEVOTHYROXINE 100 MCG (0.1MG) VIAL IV SCH (09:48)
[2016-10-27] MEDS: SIMETHICONE 80 MG CHEW TAB NG SCH (09:48)
[2016-10-27] MEDS ORDERED: SCOPOLAMINE 1.5 MG TRANSDERMAL TD PRN (10:45)
[2016-10-27] MEDS ORDERED: MORPHINE 10MG/0.5ML ORAL CONCENTRATE SOLUTION U/D SL PRN (10:45)
[2016-10-27] MEDS ORDERED: LORazepam 1 MG TAB PO PRN (10:45)
[2016-10-27] MEDS ORDERED: LORA1TAB12 PO (10:49)
[2016-10-27] MEDS ORDERED: MORP1SOL PO (10:49)
[2016-10-27] MEDS ORDERED: ATRO1OPD PO (10:49)
--- NOTE | 2016-10-27 10:55 | IPNPDOC ---
Date Seen The patient was seen on 10/27/16. Progress Note SUBJECTIVE: Patient reports feeling unchanged from previous day, no flatus from below or bowel movements. She tells me she is tired and doesn't want to do this anymore OBJECTIVE PHYSICAL EXAMINATION: VITAL SIGNS: Please see below. GENERAL: frail elderly female laying in bed nad HEENT: PERRL, dry mucous membranes, no elevation in CVP CARDIOVASCULAR: S1 S2 regular RESPIRATORY: CTA ABDOMINAL: ttp, diminished bowel sounds EXTREMITIES: no c/c/e LABORATORY DATA: Please see below. MICROBIOLOGY: Please see below. IMAGING: ABX today by my read shows no significant change DVT prophylaxis ordered?: Heparin q8h ASSESSMENT AND PLAN: This is a 81-year-old female with high grade SBO PROBLEMS: 1. SBO: high grade not improved with supportive care. Was recommended for surgical correction but high risk procedure given advanced lung disease and age. Patient declines any and all surgical options aware that it will mean the end of her life. Patient has elected for hospice and would prefer to be at home , her daughter and HCP is bedside for duration of discussion whom previously worked as a hospice nurse. Will plan to d/c home tomorrow with home hospice. All questions answered to satisfaction, MOLST form completed, witnessed and signed placed in chart, BLANKING MACHINE OPERATOR orders entered. VS, I&O, 24H, [place] Vital Signs/I&O Vital Signs Date Time Temp Pulse Resp B/P Pulse Ox O2 Delivery O2 Flow Rate FiO2 10/27/16 06:00 98.4 76 20 198/78 94 10/26/16 22:04 Nasal Cannula 10/26/16 21:54 3.0 I&O- Last 24 Hours up to 6 AM 10/27/16 06:00 Intake Total 2330 ml Output Total 1550 ml Balance 780 ml Laboratory Data 24H LABS Laboratory Tests 2 10/26/16 14:07: Anion Gap 12, Blood Urea Nitrogen 15, Creatinine 0.40L, Sodium Level 141, Potassium Level 3.5#, Chloride Level 96L, Carbon Dioxide Level 33H, Calcium Level 7.7L, Glomerular Filtration Rate > 60.0, Magnesium Level 2.4 10/26/16 17:06: Anion Gap 14, Blood Urea Nitrogen 13, Creatinine 0.35L, Sodium Level 143, Potassium Level 2.9*L, Chloride Level 96L, Carbon Dioxide Level 33H, Calcium Level 7.7L, Glomerular Filtration Rate > 60.0 10/27/16 05:40: Anion Gap 14, Blood Urea Nitrogen 10, Creatinine 0.40L, Sodium Level 142, Potassium Level 2.9*L, Chloride Level 97L, Carbon Dioxide Level 31, Calcium Level 8.1L, Glomerular Filtration Rate > 60.0 CBC/BMP Laboratory Tests 10/26/16 14:07 Calcium Level 7.7 L 10/26/16 17:06 Calcium Level 7.7 L 10/27/16 05:40 Calcium Level 8.1 L, Red Blood Count 3.78 L, Mean Corpuscular Volume 91.0, Mean Corpuscular Hemoglobin 31.0, Mean Corpuscular Hemoglobin Concent 34.1, Red Cell Distribution Width 13.5 Microbiology Microbiology 10/23/16 Influenza Virus Type A Antigen - Final, Complete 10/23/16 Influenza Virus Type B Antigen - Final, Complete 10/23/16 Urine Culture - Final, Complete YOSSI SOTO MD Oct 27, 2016 10:55
[2016-10-27] MEDS: PANTOPRAZOLE 40MG INJ (PROTONIX) (C9113) IV SCH (13:00)
[2016-10-27] MEDS: MORPHINE 2 MG/ML 1ML SYRINGE IV PRN (23:59)
[2016-10-28] MEDS: NICOTINE 14 MG/24 HR TRANSDERMAL TD SCH (10:09)
[2016-10-28] MEDS ORDERED: TRAN1.5D2 TOP (11:15)
[2016-10-28] MEDS ORDERED: ZOFR4TAB3 PO (11:18)
[2016-10-28] MEDS: PANTOPRAZOLE 40MG INJ (PROTONIX) (C9113) IV SCH (13:17)
--- NOTE | 2016-10-28 13:24 | DSES ---
DATE OF ADMISSION: 10/23/2016 DATE OF DISCHARGE: 10/28/2016 DISCHARGE DIAGNOSIS: High grade small bowel obstruction. SECONDARY DIAGNOSES: Hypothyroidism. Anxiety. Hypertension. Chronic obstructive pulmonary disease (COPD). Dyslipidemia. Iron deficiency anemia. Chronic pain. CONSULTATIONS: Dr. Gustavo Davis, general surgery. Dr. Joy Lew, pulmonary. HOSPITAL COURSE: The patient is an 81-year-old female who presented with high grade small bowel obstruction. The patient failed to improve with NG tube, nothing by mouth with supportive care, IV fluids and IV pain control. She was seen in consultation by general surgery, who had suggested operative repair. She was evaluated by Dr. Lew given she has significant and advanced chronic obstructive pulmonary disease (COPD) requiring 3 liters of oxygen at her baseline. She was deemed to be a very high risk surgical candidate with a high likelihood of never being able to be taken off the ventilator. The patient herself refused any surgical intervention knowing this would be the end of her life. Her daughter and healthcare proxy presented from out of [facility], who is a nurse and previously worked with hospice who wished to honor the patient's wishes. A Medical Order for Life-Sustaining Treatment (MOLST) form was completed. The patient is a DO NOT RESUSCITATE, DO NOT INTUBATE, comfort measures only (SHAREPOINT APPLICATION DEVELOPER). At this time, she is being discharged home with hospice with no life prolonging measures to be taken. No blood draws. No vital signs. DISPOSITION: She is to followup at home with hospice. Her activity is as tolerated. Diet is nothing by mouth. She has an nasogastric tube in place. She is a DO NOT RESUSCITATE, DO NOT INTUBATE, COMFORT MEASURES ONLY (SHAREPOINT APPLICATION DEVELOPER), home hospice. MEDICATIONS AT TIME OF DISCHARGE: - atropine sulfate 1% solution one to two drops every 2 hours as needed for terminal secretions - lorazepam 0.5 mg every 4 hours as needed for anxiety or agitation - morphine sulfate 0.25 to 1 mL every 2 hours as needed for pain or dyspnea - Zofran oral dissolvable tablets 4 mg every 4 hours as needed for nausea - scopolamine transdermal patch 1.5 mg every 72 hours as needed for terminal secretions - clonazepam 1 mg three times a day as needed for anxiety Less than 30 minutes was spent organizing disposition.
== END 2016-10-28 15:40 | disposition hospice, home (50) | DRG 390 ==
LOC: M ED 04:23 → M ED INP 11:03 → M MSPAV 13:54
PROVIDERS: ADMIT Internal Medicine; ATTEND Internal Medicine
DX: K56.5 Intestinal adhesions [bands] with obstruction (postinfection) (principal); J44.9 Chronic obstructive pulmonary disease, unspecified; K21.9 Gastro-esophageal reflux disease without esophagitis; Z51.5 Encounter for palliative care; Z66 Do not resuscitate; E78.5 Hyperlipidemia, unspecified; F32.9 Major depressive disorder, single episode, unspecified; I10 Essential (primary) hypertension; F17.210 Nicotine dependence, cigarettes, uncomplicated; D50.9 Iron deficiency anemia, unspecified; M81.0 Age-related osteoporosis without current pathological fracture; E66.9 Obesity, unspecified; E89.0 Postprocedural hypothyroidism; F41.9 Anxiety disorder, unspecified; E86.0 Dehydration; G89.29 Other chronic pain; E55.9 Vitamin D deficiency, unspecified; Z90.710 Acquired absence of both cervix and uterus; Z79.891 Long term (current) use of opiate analgesic; Z79.82 Long term (current) use of aspirin; Z79.899 Other long term (current) drug therapy